=== PATIENT | male | born 1955 | race Caucasian/White ===

== ENCOUNTER → 2023-12-15 13:34 | Outpatient (REF) | payer OTHER, SELFPAY | LOC: RCS 13:34 | PROVIDERS: ATTENDING PHYSICIAN Internal Medicine Cardiovascular Disease; FAMILY PHYSICIAN Internal Medicine | DX: I35.0 Nonrheumatic aortic (valve) stenosis (principal); I10 Essential (primary) hypertension | CPT/HCPCS: 93306 ==

== ENCOUNTER → 2024-06-14 08:47 | Outpatient (REF) | payer OTHER, SELFPAY | LOC: RCS 08:47 | PROVIDERS: ATTENDING PHYSICIAN Internal Medicine Cardiovascular Disease; FAMILY PHYSICIAN Internal Medicine | DX: I35.0 Nonrheumatic aortic (valve) stenosis (principal) | CPT/HCPCS: 93306 ==

== ENCOUNTER 2024-07-01 07:32 | Day surgery (SDC) | payer OTHER, SELFPAY ==
[2024-07-01] VITALS (10 sets, daily range): BP systolic 105–149; BP diastolic 76–105; BMI 32.1
[2024-07-01 08:23] LABS: Glucose - Point of Care 195 mg/dl (70-99)
[2024-07-01] MEDS: LOW STRENGTH ASPIRIN 324 MG PO (08:36)
[2024-07-01] MEDS: NSS 287 ML IV (08:36)
--- NOTE | 2024-07-01 10:16 | ITS.CL.CATH ---
[employer] - Catheterization
Cardiac Catheterization
Procedure Report:
LEFT HEART CATHETERIZATION
Date of Procedure: July 01, 2024
Referring: Dr. Jos Ortiz
PROCEDURES:
1. Left heart catheterization with coronary and single-plane left ventriculography
INDICATION: Severe symptomatic aortic stenosis
ACCESS: Right radial artery, 6 Chinese sheath
HEMODYNAMICS : (mmHg)
AO (s/d) : 124/79
LV (s/d) : 194/13
LVEDP : 21
AORTIC VALVE:
Mean Gradient: 52 mmHg
CORONARY FINDINGS
DOMINANCE: Right
LEFT MAIN: Normal
LEFT ANTERIOR DESCENDING: The LAD arises normally from the left main and runs in the anterior interventricular groove with diffuse noncritical luminal irregularities
CIRCUMFLEX: The circumflex is a medium caliber nondominant vessel. The first sizable obtuse marginal branch is 100% occluded at its origin and noted to fill via left to left collaterals. The circumflex continues in the AV groove supplying 3
terminal posterolateral branches
RIGHT CORONARY ARTERY: The right coronary artery is a small caliber dominant vessel with a 40% mid stenosis between 2 RV marginal branches and 60% distal RCA stenosis.
VENTRICULOGRAPHY: Left ventriculography was performed in an LION projection. Digital single-plane left ventricular ejection fraction is visually estimated at 65%
RADIATION SUMMARY: Fluoro Time (min): 2.9, Dose (mGy): 301, DAP (Gy.cm2) : 22.7
Closure Device: TR band
CONCLUSIONS
1. Moderate coronary disease with 100% occlusion of OM1 which fills via rwzw-gr-lqiq collaterals and 60% distal RCA stenosis with faint rxmo-pz-hcgbx collaterals filling the distal vessel.
2. Severe aortic stenosis with mean aortic valve gradient of 52 mmHg
3. Preserved left ventricular systolic function
RECOMMENDATIONS
1. OM1 is 100% occluded and the distal vessel fills via collaterals. There is moderate nonfocal coronary disease involving the mid LAD and 60% distal RCA. (NOTE: STEMI presented to ED during this procedure and iFR could not be performed given
time constraints)
2. Will proceed with TAVR CT scan
3. Will discuss at upcoming valve clinic meeting
Copy to: Dr. Jos Ortiz
--- NOTE | 2024-07-01 12:35 | CONSULT.STRU ---
Consultation
-
Date/Time Consultation Requested: 07/01/2024
Date/Time Consultation Performed: 07/01/2024
Requesting Provider: Jos Mathur MD
Performing Provider: PATRICK Constantino
Reason for Consultation: Aortic stenosis/ TAV evaluation
Patient History
Physicians
Family Physician: Christopher Galan
Outpatient Salesperson [employer]: Lynn Ortiz
Primary Salesperson [employer]: Shelly Ortiz
History of Present Illness
Mr. Mckeon is a very pleasant and well appearing 69yo male who just underwent cardiac catheterization today. He has known history of aortic stenosis but over the last several months he is noticing increased FINE. His echocardiogram on 06/14/2024 was
notable for EF 60-65%, AV PG/M/55, JORGE: 0.7, no AI documented, trace MR, trace TR. 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 He denies CP, palpitations, orthopnea, PND or peripheral
edema.
Reviewed the pathophysiology of aortic stenosis with the patient and his . Explained the treatment options of SAVR and TAVR. Explained the TAVR evaluation process including follow up BMP, CT TAVR scan, CT surgery consult and Heart Team
discussion. Provided with script for BMP next week, script and appointment for CT TAVR, Consult appointment with Dr. Swan and a copy of the TAVR education booklet with contact information. Allowed for and answered questions.
Past Medical History
Past Medical History: HTN, Hypercholesterolemia, NIDDM and Other (kidney stones)
Past Surgical History
Past Surgical History: Other (hernia repair at 1yo)
Dental History
[facility]- has been over a year since last visit, will call and make an appointment,
Family History
Mother: Still Living (92yo)
Father: at Age (83yo (Cancer, CVA))
Social History
Alcohol: Occasional
Drug: None
Tobacco: Non-Smoker
Personal:
Living: With Spouse
Allergies
Allergy/AdvReac Type Severity Reaction Status Date / Time
No Known Allergies Allergy Verified 07/01/24 08:23
Home Medications
�Medication �Instructions �Recorded �Confirmed �Type
aspirin 81 mg tablet,delayed 81 mg PO DAILY #1 tab 07/01/24 Rx
release
atorvastatin 20 mg tablet 20 mg PO DAILY 07/01/24 07/01/24 History
bisoprolol 5 1 tab PO DAILY 07/01/24 07/01/24 History
mg-hydrochlorothiazide 6.25 mg
tablet
canagliflozin 300 mg tablet 300 mg PO DAILY 07/01/24 07/01/24 History
(Invokana)
enalapril maleate 20 mg tablet 20 mg PO HS 07/01/24 07/01/24 History
glimepiride 4 mg tablet 8 mg PO DAILY 07/01/24 07/01/24 History
metformin 1,000 mg tablet 1,000 mg PO BID 07/01/24 07/01/24 History
multivitamin with minerals-folic 1 tab PO DAILY 07/01/24 07/01/24 History
acid 80 mcg chewable tablet
(Centrum Adult 50 Plus)
omeprazole 40 mg capsule,delayed 40 mg PO DAILY 07/01/24 07/01/24 History
release
repaglinide 2 mg tablet 4 mg PO TIDWMEAL 07/01/24 07/01/24 History
STS%
STS %: AVR: 0.715%, AVR+ CAB.07%
Review of Systems
-
History Source: Patient
General: Reports No Symptoms; Denies Fever, Weight Gain, Weight Loss or Fatigue
HEENT: Reports No Symptoms; Denies Visual Changes
Respiratory: Reports FINE; Denies Cough, Asthma or PND
Cardiac: Reports No Symptoms; Denies Chest Pain, Palpitations or Edema
Abdomen/GI: Reports No Symptoms; Denies Abdominal Pain, Reflux, Indigestion, Nausea or Vomiting
: Reports No Symptoms; Denies Dysuria, Urgency or Hematuria
Musculoskeletal: Reports No Symptoms
Skin: Reports No Symptoms
Neurological: Reports No Symptoms; Denies CVA, TIA, Headaches, Syncope or Dizzy
Vascular: Reports No Symptoms
Physical Exam
Vital Signs
Temp 98.0 F 07/01/24 08:42
Temp route: Temporal 07/01/24 08:42
Pulse 76 07/01/24 12:15
Resp Rate 16 07/01/24 11:15
Blood pressure 105/78 07/01/24 12:01
Blood pressure extremity used: Left upper arm 07/01/24 08:42
Position: Sitting 07/01/24 08:42
MAP (cuff-Eleanor Monitor) 87 07/01/24 12:01
SaO2 97 07/01/24 12:15
Oxygen Mode of Delivery Room air 07/01/24 12:00
Can the patient verbally communicate their pain? Yes 07/01/24 12:00
Actual Weight 95.7 kg 07/01/24 08:00
Body Mass Index (BMI) 32.1 07/01/24 08:00
Labs
06/28/2024 ([facility])
BUN/Creat: 19/1.03 GFR: 78
H/H: 17.1/51.8
WBC: 8.2
Platelets: [id number]
Diagnostic Studies
07/01/2024 Cardiac Catheterization:
HEMODYNAMICS : (mmHg)
AO (s/d) : 124/79
LV (s/d) : 194/13
LVEDP : 21
AORTIC VALVE:
Mean Gradient: 52 mmHg
CORONARY FINDINGS
DOMINANCE: Right
LEFT MAIN: Normal
LEFT ANTERIOR DESCENDING: The LAD arises normally from the left main and runs in the anterior interventricular groove with diffuse noncritical luminal irregularities
CIRCUMFLEX: The circumflex is a medium caliber nondominant vessel. The first sizable obtuse marginal branch is 100% occluded at its origin and noted to fill via left to left collaterals. The circumflex continues in the AV groove supplying 3
terminal posterolateral branches
RIGHT CORONARY ARTERY: The right coronary artery is a small caliber dominant vessel with a 40% mid stenosis between 2 RV marginal branches and 60% distal RCA stenosis.
VENTRICULOGRAPHY: Left ventriculography was performed in an LION projection. Digital single-plane left ventricular ejection fraction is visually estimated at 65%
RADIATION SUMMARY: Fluoro Time (min): 2.9, Dose (mGy): 301, DAP (Gy.cm2) : 22.7
Closure Device: TR band
CONCLUSIONS
1. Moderate coronary disease with 100% occlusion of OM1 which fills via zefv-di-ooew collaterals and 60% distal RCA stenosis with faint qela-il-kmwgi collaterals filling the distal vessel.
2. Severe aortic stenosis with mean aortic valve gradient of 52 mmHg
3. Preserved left ventricular systolic function
RECOMMENDATIONS
1. OM1 is 100% occluded and the distal vessel fills via collaterals. There is moderate nonfocal coronary disease involving the mid LAD and 60% distal RCA. (NOTE: STEMI presented to ED during this procedure and iFR could not be performed given
time constraints)
2. Will proceed with TAVR CT scan
3. Will discuss at upcoming valve clinic meeting
06/14/2024 Echocardiogram:
CONCLUSIONS
Normal left ventricular size and systolic function.
No regional wall motion abnormalities are seen.
LV ejection fraction is 60-65% by volumetric assessment.
Normal right ventricular size and function.
Thickened and calcified aortic valve with restricted leaflet motion.
Severe aortic stenosis with peak/mean gradients across the aortic valve of
91/55 mmHg, respectively.
LVOT diameter of 2.1 cm.
Tricuspid valve opens normally with trace tricuspid regurgitation.
Estimated pulmonary artery pressure of 24 mmHg assuming a right atrial pressure
of 3 mmHg.
Pulmonic valve is grossly normal but poorly visualized.
Normal size aortic root, and normal size aorta.
The IVC is of normal size and demonstrates normal respiratory variation.
Indications:
Moderate to severe aortic stenosis
Rhythm: Sinus
Portable Study: No
Technical Quality: Fair
Contrast: None
BP: 136 / 78
PROCEDURE
A complete Transthoracic Echocardiogram was performed utilizing two-dimensional
evaluation with color flow and spectral Doppler analysis.
FINDINGS
Left Ventricle
Normal left ventricular size and systolic function. Mild concentric left
ventricular hypertrophy. No regional wall motion abnormalities are seen. LV
ejection fraction is 60-65% by volumetric assessment. Diastolic function
indeterminate.
Right Ventricle
Normal right ventricular size and function.
Left Atrium
Indexed LA volume is within normal range (15-34 mL/m2).
Right Atrium
Normal right atrial size.
Mitral Valve
Mitral valve opens normally. Mitral annular calcification with trace mitral
regurgitation.
Aortic Valve
Thickened and calcified aortic valve with restricted leaflet motion. Severe
aortic stenosis with peak/mean gradients across the aortic valve of 91/55 mmHg,
respectively. The aortic valve by the Continuity equation is calculated at 0.7
Tricuspid Valve
Tricuspid valve opens normally with trace tricuspid regurgitation. Estimated
pulmonary artery pressure of 24 mmHg assuming a right atrial pressure of 3
mmHg.
Pulmonic Valve
Pulmonic valve is grossly normal but poorly visualized. No pulmonic
regurgitation is seen.
Pericardium\\Pleura
No pericardial or pleural effusions seen.
Aorta
Normal size aortic root, and normal size aorta. The aortic arch is normal in
caliber.
Other Finding
The IVC is of normal size and demonstrates normal respiratory variation.
Interatrial septum is intact with no evidence of shunting by color flow
Doppler.
Exam
General: Well Developed, Well Nourished, No Apparent Distress and Comfortable
HEENT: Normocephalic, PERRLA and EOMI
Neck: Trachea Midline
Respiratory: Clear; Negative Wheezes, Crackles or Rhonchi
Cardiac: S1/S2, Regular Rhythm and Murmur (Grade II/)
GI: Soft, Non Tender, Non Distended and Normal Bowel Sounds
Rectal: Deferred by Provider
Skin: Warm and Dry
Neuro: AO x 3, No Motor Deficits and Nonfocal/Grossly Intact
Extremities: Pulses (+2 pedal pulses bilaterally); Negative Lower Level Edema
Psych: Calm
Assessment / Plan
-
Severe Aortic stenosis:
����������� Continue evaluation for aortic stenosis as outpatient
����������� BMP next week
����������� CT TAVR scan 07/17/2024 at
����������� CT surgery consult with Dr. Swan 07/22/2024
����������� Dental Clearance
����������� Heart team discussion at [facility]
Procedure Type:�CABG + AVR
Perioperative Outcome Estimate %
Operative Mortality 1.07%
Morbidity & Mortality 7.57%
Stroke 1.7%
Renal Failure 1.3%
Reoperation 3.3%
Prolonged Ventilation 4.64%
Deep Sternal Wound Infection 0.181%
Long Hospital Stay (>14 days) 3.32%
Short Hospital Stay (<6 days)* 50.4%
Procedure Type:�Isolated AVR
Perioperative Outcome Estimate %
Operative Mortality 0.715%
Morbidity & Mortality 5.53%
Stroke 0.77%
Renal Failure 0.712%
Reoperation 2.94%
Prolonged Ventilation 2.75%
Deep Sternal Wound Infection 0.066%
Long Hospital Stay (>14 days) 1.52%
Short Hospital Stay (<6 days)* 67.1%
Data Reviewed
-
EKG: Report Reviewed by me
Utility Hand: Discussed with Physician
Echo: Report Reviewed by me and Discussed with Patient
Labs: Labs Reviewed by me
Old Records: Reviewed (Cardiology notes)
Total Time Spent with Patient (in minutes): 30
[2024-07-01] MEDS: NSS 432 IV (13:13)
== END 2024-07-01 13:15 | disposition home or self-care (01) ==
LOC: CATH 07:32
PROVIDERS: ATTENDING PHYSICIAN Internal Medicine Interventional Cardiology; FAMILY PHYSICIAN Internal Medicine; OTHER PHYSICIAN Internal Medicine Cardiovascular Disease
DX: I35.0 Nonrheumatic aortic (valve) stenosis (principal); I25.10 Atherosclerotic heart disease of native coronary artery without angina pectoris; I10 Essential (primary) hypertension; E78.00 Pure hypercholesterolemia, unspecified; E11.9 Type 2 diabetes mellitus without complications; Z82.3 Family history of stroke; Z79.82 Long term (current) use of aspirin; Z79.84 Long term (current) use of oral hypoglycemic drugs
CPT/HCPCS: 82962; 93458; C1894; Q9967

== ENCOUNTER → 2024-07-17 09:14 | Outpatient (REF) | payer OTHER, SELFPAY | LOC: RAD 09:14 | PROVIDERS: ATTENDING PHYSICIAN Nurse Practitioner Adult Health; FAMILY PHYSICIAN Internal Medicine | DX: I35.0 Nonrheumatic aortic (valve) stenosis (principal) | CPT/HCPCS: 74174; 75572; Q9967 ==

== ENCOUNTER 2024-08-22 05:07 | Inpatient (IN) | payer OTHER, MEDICARE, SELFPAY ==
[2024-08-13 08:26] VITALS: BMI 31.1
[2024-08-13 09:10] LABS: % Basophils 1.3 % (0-2); % Eosinophils 7.6 % (0-6); % Immature Granulocytes 0.2 % (0-0.5); % Lymphocytes 22.8 % (20.5-51.1); % Monocytes 6.2 % (1.7-9.3); % Neutrophils 61.9 % (42.2-75.2); Absolute Basophils 0.1 10^3/uL (0-0.2); Absolute Eosinophils 0.6 10^3/uL (0-0.7); Absolute Lymphocytes 1.9 10^3/uL (1.2-3.4); Absolute Monocytes 0.5 10^3/uL (0.1-0.6); Absolute Neutrophils 5.1 10^3/uL (1.4-6.5); Hematocrit 46.3 % (39.0-52.0); Hemoglobin 16.2 g/dL (13.0-18.0); Mean Corpuscular Hgb 31.2 pg (27.0-31.0); Mean Platelet Volume 9.9 fL (7.4-10.4); Nucleated Red Blood Cells % 0 % (-); Platelet Count 268 10^3/uL (130-400); Red Cell Dist. Width 13.7 % (11.5-14.5); White Blood Cell Count 8.2 10^3/uL (4.8-10.8)
[2024-08-13 09:25] LABS: INR 0.81; PT 11.6 Sec (11.4-14.6)
[2024-08-13 09:26] LABS: APTT 30.2 Sec (23.4-35.0)
[2024-08-13 09:30] LABS: Urine Albumin Negative (Neg - Trace); Urine Bilirubin Negative (Negative); Urine Character Clear (Clear); Urine Color Yellow; Urine Glucose 4+ (Negative); Urine Ketone 2+ (Negative); Urine Leukocyte Negative (Negative); Urine Nitrite Negative (Negative); Urine Occult Blood Negative (Negative); Urine Specific Gravity 1.015 (<1.030); Urine Urobilinogen Negative (Neg - 1+)
[2024-08-13 09:54] LABS: Blood Urea Nitrogen 24 mg/dl (9-20); Calcium 9.8 mg/dl (8.4-10.2); Carbon Dioxide 26 mmol/L (22-30); Chloride 103 mmol/L (98-107); Estimated Creatinine Clearance 84 ml/min; Glucose 149 mg/dl (70-99); Potassium 4.7 mmol/L (3.5-5.1); Sodium 140 mmol/L (135-145); eGFR > 60.00
--- NOTE | 2024-08-13 10:07 | CM ---
Met with and Mrs. Mckeon in [facility]. He states prior to admission he resides with his spouse in a spilt level home without any steps to enter. He states his trmbke-tv-xos resides in a in-law suite attached to their home. She is totally
independent with her care. He states prior to admission he was independent with ambulation and adls. He states he does not have any DME in the home. He states he has a prescription plan. His spouse states she will be home to assist in his care if
needed. She states she can delinquency prevention social worker. The discharge plan is to return home with his spouse and a home visit by the Transitional Care Nurse when medically stable.
We reviewed pre-op and post-op routines. We reviewed the shower instructions. He has the soap, written instructions and the Cardiothoracic Surgery Educational Booklet. We also reviewed restrictions including sternal precautions and driving
restrictions. We discussed a home visit by the Transitional Care Nurse. He is agreeable to a home visit. The plan is for AVR/possible CABG on August.
[2024-08-13 11:12] LABS: Glycohemoglobin (HgbA1c) 7.1 % (4.0-5.6)
[2024-08-22] VITALS (20 sets, daily range): BP systolic 85–170; BP diastolic 62–110; BMI 31.3
[2024-08-22] MEDS: PROTONIX 40 MG PO (05:27)
[2024-08-22] MEDS: MAGNESIUM OXIDE 500 MG PO (05:27)
[2024-08-22] MEDS: LOPRESSOR 25 MG PO (05:27)
[2024-08-22] MEDS: BACTROBAN 2% OINTMENT 1 APPLIC NASAL ×2 (05:40→20:09)
--- NOTE | 2024-08-22 05:49 | PTCARENOTE ---
Patient admitted to 2259. Vital signs obtained, clipped, medications administered. home medications reconciled. admission questions completed. pt confirmed NPO since midnight and 2 CHG showers. Awaiting transfer to [facility]
--- NOTE | 2024-08-22 06:16 | W.CVOR.SURPR ---
CVOR Surgeon Immed Pre Op
-
I have examined this patient prior to performance of the scheduled procedure.
The patient's condition is unchanged from the time of the dictated/written History and
Physical and the patient is able to undergo the scheduled procedure.
Sternotomy AVR likely root enlargement, CABG x 1 (to TRIMMING CUTTER MACHINE OM), and TYRESE CLip
[2024-08-22 07:32] LABS: ACT+ - POC 101 Seconds (82-134)
[2024-08-22 07:58] LABS: Urine Albumin 1+ (Neg - Trace); Urine Bilirubin Negative (Negative); Urine Character Clear (Clear); Urine Color Yellow; Urine Glucose 4+ (Negative); Urine Ketone 1+ (Negative); Urine Leukocyte Negative (Negative); Urine Nitrite Negative (Negative); Urine Occult Blood 4+ (Negative); Urine Specific Gravity 1.015 (<1.030); Urine Urobilinogen Negative (Neg - 1+); Urine pH 6.5 (5.0-9.0)
[2024-08-22 08:17] LABS: Urine Bacteria Few (Negative); Urine Red Blood Cell 26-30 /HPF (0-2)
[2024-08-22 08:29] LABS: ACT+ - POC 515 Seconds (82-134)
[2024-08-22 08:46] LABS: B.E. - POC -1.1 mmol/L; Glucose - POC 161 mg/dl (70-99); HCO3 - POC 23 mmol/L (21-28); Hematocrit - POC 37 % PCV (42-52); Hemodilution- POC No; Hemoglobin Calculated - POC 12.4; Ionized Calcium - POC 1.09 mmol/L (1.15-1.33); Lactate - POC 1.88 mmol/L (0.36-0.75); O2 Saturation %Calculated-POC 99.9 % (94-98); PCO2 - POC 33 mmHg (35-48); PO2 - POC 339 mmHg (83-108); Sodium - POC 141 mmol/L (136-145); Specimen Type - POC Arterial; pH - POC 7.44 (7.35-7.45)
[2024-08-22 08:54] LABS: B.E. - POC 0.6 mmol/L; Glucose - POC 211 mg/dl (70-99); HCO3 - POC 26 mmol/L (21-28); Hematocrit - POC 35 % PCV (42-52); Hemodilution- POC Yes; Hemoglobin Calculated - POC 11.8; Ionized Calcium - POC 1.02 mmol/L (1.15-1.33); Lactate - POC 1.25 mmol/L (0.36-0.75); PCO2 - POC 45 mmHg (35-48); PO2 - POC 445 mmHg (83-108); Potassium - POC 4.7 mmol/L (3.5-5.1); Sodium - POC 140 mmol/L (136-145); Specimen Type - POC Arterial; pH - POC 7.38 (7.35-7.45)
[2024-08-22 09:03] LABS: ACT+ - POC 516 Seconds (82-134)
[2024-08-22 09:42] LABS: ACT+ - POC 472 Seconds (82-134)
[2024-08-22 09:53] LABS: B.E. - POC 0.7 mmol/L; Glucose - POC 162 mg/dl (70-99); HCO3 - POC 26 mmol/L (21-28); Hematocrit - POC 34 % PCV (42-52); Hemodilution- POC Yes; Hemoglobin Calculated - POC 11.4; Lactate - POC 1.72 mmol/L (0.36-0.75); O2 Saturation %Calculated-POC 99.9 % (94-98); PCO2 - POC 46 mmHg (35-48); PO2 - POC 339 mmHg (83-108); Potassium - POC 3.8 mmol/L (3.5-5.1); Sodium - POC 143 mmol/L (136-145); Specimen Type - POC Arterial; pH - POC 7.37 (7.35-7.45)
[2024-08-22 10:26] LABS: ACT+ - POC 469 Seconds (82-134)
--- NOTE | 2024-08-22 10:58 | CM ---
Chart reviewed. Patient is in the OR today. Patient is independent of ADLS, lives with his in a split level house, 0 LINN, 0 DME. Plan is for the patient to return home with CT Transitional RN. CM to follow
[2024-08-22 11:04] LABS: B.E. - POC 0.7 mmol/L; Glucose - POC 133 mg/dl (70-99); HCO3 - POC 26 mmol/L (21-28); Hematocrit - POC 33 % PCV (42-52); Hemodilution- POC Yes; Hemoglobin Calculated - POC 11.2; Lactate - POC 3.19 mmol/L (0.36-0.75); O2 Saturation %Calculated-POC 99.9 % (94-98); PCO2 - POC 44 mmHg (35-48); PO2 - POC 269 mmHg (83-108); Potassium - POC 4.2 mmol/L (3.5-5.1); Sodium - POC 144 mmol/L (136-145); Specimen Type - POC Arterial; pH - POC 7.38 (7.35-7.45)
[2024-08-22 11:07] LABS: ACT+ - POC 206 Seconds (82-134)
[2024-08-22 11:20] LABS: ACT+ - POC 123 Seconds (82-134)
[2024-08-22 11:28] LABS: B.E. - POC -2.4 mmol/L; Glucose - POC 143 mg/dl (70-99); HCO3 - POC 23 mmol/L (21-28); Hematocrit - POC 32 % PCV (42-52); Hemodilution- POC Yes; Ionized Calcium - POC 1.24 mmol/L (1.15-1.33); Lactate - POC 2.67 mmol/L (0.36-0.75); PCO2 - POC 39 mmHg (35-48); PO2 - POC 382 mmHg (83-108); Potassium - POC 4.1 mmol/L (3.5-5.1); Sodium - POC 143 mmol/L (136-145); Specimen Type - POC Arterial; pH - POC 7.37 (7.35-7.45)
--- NOTE | 2024-08-22 11:46 | CON.INTV ---
Consultation
Consultation Request
Date/Time Consultation Requested: 08/22/2024 - 1113
Date/Time Consultation Performed: 08/22/2024 - 1139
Requesting Provider: PATRICK Talavera
Performing Provider: Dr. Gonzalez
Reason for Consultation: CABG + SAVR
Medical History
-
Chief Complaint: Elective CABG + SAVR
History of Present Illness:
69-year-old male non-smoker with a past medical history of nonrheumatic aortic valve stenosis, CAD, hypercholesterolemia, hypertension, DM type II and history of kidney stone who presents with surgical aortic valve replacement + surgical
revascularization. Patient known to the CT surgery service with last visit on 08/05/[address] Swan. Patient's recent echo from 06/14/2024 showed severe aortic stenosis with peak/mean gradients of 91/55 mmHg, respectively, with restricted leaflet
motion. Estimated PASP was WNL at 24 mmHg. LVEF was 60-65% with no regional WMA, and the RV was normal in size and function. Left heart cath on 07/01/2024 showed moderate CAD with 100% occlusion of the OM1 which fills via afbx-lf-raam collaterals
and 60% distal RCA stenosis with faint kmfm-dq-gfldn collaterals filling the distal vessel. Also severe aortic stenosis with a mean gradient of [address] TAVR done on 07/17/2024 and there was no lung nodules, pleural effusions, no significant
incidental findings. A multidisciplinary team discussion agreed to move forward with surgical aortic valve replacement given his smaller size of his annulus and sinuses. He also had been offered surgical revascularization which he also agreed to.
Today he underwent CABG x 1 (Ao to RSVG to RPDA), aortic root enlargement using bovine pericardial patch, surgical aortic valve replacement with 25 mm bioprosthesis and a left atrial appendage exclusion with a 45 mm clip. There were no immediate
complications and he was transferred to the CVICU postoperatively for further care, and cash grain farmer services consulted for additional management/recommendations.
When I saw the patient, he was in bed, intubated on a CPAP trial on 09/09 with 40% FiO2 with PIP 11 cmH2O, VTe 471 cc and breathing at 22 breaths/min. Heart rate 90, BP 103/62 via A-line, BP via NIBP: 88/66, PAP 31/16, and CO/CI: 4.28/2.07,
respectively. Mediastinal chest tubes x [address] Currently on Levophed at 2 mcg/min and insulin drip at 10 units/hr.
PMHx: CAD, severe arctic stenosis, history of kidney stone, diabetes mellitus type 2, hypercholesterolemia, hypertension, chronic back pain
PSHx: Hernia repair (at 1-years-old), dental surgery
Past Medical History
Past Medical History: Other (Above as per HPI)
Past Surgical History: Other (Above as per HPI)
Social History
Tobacco: Non-smoker
Alcohol: Occasional (Usually liquor or beer once a month)
Drug: None
Personal:
Living: With Family
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
Family History
Family History: Cancer (Father: Bladder cancer), Diabetes (Mother), Hypertension (Mother) and Other (Migraine family history of cerebral artery occlusion)
Allergies / Home Medications
Allergies
Allergy/AdvReac Type Severity Reaction Status Date / Time
No Known Allergies Allergy Verified 08/09/24 12:09
Home Medications
�Medication �Instructions �Recorded �Confirmed �Last Taken �Type
atorvastatin 20 mg tablet 20 mg PO DAILY High Cholesterol 07/01/24 08/22/24 08/21/24 06:00 History
bisoprolol 5 1 tab PO DAILY Blood Pressure 07/01/24 08/22/24 08/21/24 06:00 History
mg-hydrochlorothiazide 6.25 mg
tablet
canagliflozin 300 mg tablet 300 mg PO DAILY Heart 07/01/24 08/22/24 08/19/24 06:00 History
(Invokana) Disease/Condition
enalapril maleate 20 mg tablet 20 mg PO HS Blood Pressure 07/01/24 08/22/24 08/18/24 06:00 History
glimepiride 4 mg tablet 8 mg PO DAILY Diabetes 07/01/24 08/22/24 08/21/24 18:00 History
metformin 1,000 mg tablet 1,000 mg PO BID Diabetes 07/01/24 08/22/24 08/21/24 16:00 History
multivitamin with minerals-folic 1 tab PO DAILY Supplement 07/01/24 08/22/24 08/13/24 06:00 History
acid 80 mcg chewable tablet
(Centrum Adult 50 Plus)
omeprazole 40 mg capsule,delayed 40 mg PO DAILY Gastrointestinal 07/01/24 08/22/24 08/21/24 06:00 History
release Issue
repaglinide 2 mg tablet 4 mg PO TIDWMEAL Diabetes 07/01/24 08/22/24 08/21/24 18:00 History
dulaglutide 0.75 mg/0.5 mL 0.75 mg SC WE Diabetes 08/09/24 08/22/24 08/14/24 06:00 History
subcutaneous pen injector
(Trulicity)
aspirin 81 mg tablet,delayed 81 mg PO DAILY Blood Clot 08/22/24 08/22/24 08/21/24 06:00 History
release Prevention/Tx
Review of Systems
-
Unable to Obtain full review of systems at this time due to: Patient Intubation
Vitals / Labs / Diagnostic Testing
Vital Signs
Temp Pulse Resp BP Pulse Ox
97.7 F 79 0 126/88 98
08/22/24 13:00 08/22/24 13:10 08/22/24 13:05 08/22/24 13:05 08/22/24 13:16
Lab Data
08/22/24 11:54
Laboratory Results
08/22/24
11:54
PT 18.1 H
INR 1.44
APTT 32.3
pH 7.42
pCO2 39
pO2 125 H
HCO3 25.3
O2 Delivery Level
Diagnostic Testing:
Physical Exam
-
HEENT: Normocephalic, Anicteric and Other (ETT in)
Cardiovascular: S1/S2 and Peripheral Edema (negative)
Respiratory: Wheeze (negative), Rales (negative), Rhonchi (negative), Non-Labored Respirations, Other (Mechanical breath sounds heard bilaterally) and Other (Chest tubes: mediastinal chest tubes x 2)
GI: Soft, Non Distended, Non Tender and Normal Bowel Sounds
Neurology: Tremors (negative) and Other (Sedated)
Skin: Warm and Dry
General: Respiratory Distress (negative), Comfortable, Fever (negative) and Chills (negative)
Assessment
-
Assessment: 69-year-old male non-smoker with a past medical history of nonrheumatic aortic valve stenosis, CAD, hypercholesterolemia, hypertension, DM type II and history of kidney stone who presents with surgical aortic valve replacement +
surgical revascularization. Patient known to the CT surgery service with last visit on 08/05/[address] Swan. Patient's recent echo from 06/14/2024 showed severe aortic stenosis with peak/mean gradients of 91/55 mmHg, respectively, with restricted
leaflet motion. Estimated PASP was WNL at 24 mmHg. LVEF was 60-65% with no regional WMA, and the RV was normal in size and function. Left heart cath on 07/01/2024 showed moderate CAD with 100% occlusion of the OM1 which fills via hiyn-tw-heoo
collaterals and 60% distal RCA stenosis with faint lqth-sy-wxjth collaterals filling the distal vessel. Also severe aortic stenosis with a mean gradient of [address] TAVR done on 07/17/2024 and there was no lung nodules, pleural effusions, no
significant incidental findings. A multidisciplinary team discussion agreed to move forward with surgical aortic valve replacement given his smaller size of his annulus and sinuses. He also had been offered surgical revascularization which he also
agreed to. Today he underwent CABG x 1 (Ao to RSVG to RPDA), aortic root enlargement using bovine pericardial patch, surgical aortic valve replacement with 25 mm bioprosthesis and a left atrial appendage exclusion with a 45 mm clip. There were no
immediate complications and he was transferred to the CVICU postoperatively for further care, and cash grain farmer services consulted for additional management/recommendations.
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
Impression:
#Multivessel CAD s/p CABG x 1 (Ao to RSVG to RPDA) + left atrial appendage exclusion with 45 mm clip - POD#0
#Severe aortic valve stenosis s/p surgical aortic valve replacement with 25 mm bioprosthesis - POD#0
#Acute anemia due to above
#DM type II (uncontrolled: HbA1c � 7.1 on 08/13/2024) complicated by hyperglycemia
#Hypertension
#Hyperlipidemia
#History of nephrolithiasis
#Chronic HFpEF
Plan:
Ventilator settings reviewed
FiO2 will be weaned to maintain SpO2 >90-94%
Minute ventilation will be adjusted
Arterial blood gases will be monitored
Spontaneous breathing trial will be attempted with hopeful extubation after anesthesia/sedation wear off
prn nebulized bronchodilators - not currently bronchospastic
Pulmonary artery catheter parameters will be followed
Pressors/antihypertensive/inotropes/diuretics will be provided as needed
Maintain MAP>65
Replete electrolytes with K>4, Mg>2
Monitor chest tube output (mediastinal chest tubes x 2)
Monitor hemoglobin
Monitor platelet count and coags
Transfuse blood products as needed to maintain Hb>7g/dL, plt>50k (given post-operative status)
CT surgery managing chest tubes
Monitor blood sugar to maintain euglycemia with goal BG 110-140
Insulin drip per protocol
Aspiration precautions
VAP prevention protocol
DVT prophylaxis
Early nutrition
Early mobilization
Critical care statement: A total of 41 minutes of critical care time was provided for this patient today. This includes management of ventilator, spontaneous breathing trial, arterial blood gases, pressors, of unstable vital signs, evaluation of the
patient at bedside, reviewing the patient's pertinent medical records including radiographs, microbiology, laboratory evaluations, and discussion with primary team and critical care nursing.
--- NOTE | 2024-08-22 11:49 | W.PN.CT.SURG ---
CT Surgery Operative Note
-
CARDIAC SURGERY OPERATIVE REPORT
Preoperative Diagnosis: Aortic valve stenosis with multivessel coronary artery disease
Postoperative Diagnosis: Same
Procedure(s) Performed:
1. Standard sternotomy with aortic and right atrial cannulation
2. Endoscopic harvesting of right lower extremity for vein
3. Coronary artery bypass grafting x 1 (Ao to RSVG to RPDA)
4. Aortic root enlargement using bovine pericardial patch [Maria De Jesus Jett]
5. Surgical aortic valve replacement [25 mm bioprosthesis]
6. Left atrial appendage exclusion [45 mm clip]
7. Placement temporary ventricular pacing wires
8. Trans-esophageal echocardiography
Date of Surgery: 08/22/2024
Comorbidities:
1. Severe aortic valve stenosis
2. Two-vessel coronary artery disease
3. Hypertension
4. Hyperlipidemia
5. Nephrolithiasis
6. Diabetes
7. Diastolic heart failure
Attending Surgeon: Montana Swan MD, MS
Assistants: Rita Jordan PA-C (present and necessary to quality assistant, retraction, suction, exposure, suture management, and wound closure under my direction) & Annmarie Guardado PA-C (endo vein harvest)
Anesthesiology: Leoncio Garcia MD and Amalia Saavedra CRNA
Scrub and Circulating RNs: Radha Hull RN, Tato Reyna RN
Loss Prevention Coordinator: Shahzad Jacques CCP
Anesthesia: GETA
EBL: per perfusion records
Products: None
CPB Time: 133 minutes
Aortic Cross Clamp Time: 117 minutes
Indication(s) for Procedures: This is a 69-year-old male with severe aortic valve stenosis. Given his numbers being quite severe, he is referred initially for consideration of TAVR versus SAVR. TAVR CT scan demonstrated smaller sinuses in the
annular dimension of approximately 23 TAVR valve size with an annular area of around 420mm2. With this in mind, and his young age and relatively long living relatives, lifetime management was at play. I offered him surgical aortic root
enlargement, surgical aortic valve replacement, and single-vessel bypass with the management of his left atrial appendage.
Aortic Valve Description: Heavily calcified aortic valve with infiltration into the annulus particular towards the noncoronary cusp. Trileaflet valve. Left and right coronary ostia the normal anatomic positions.
Conduit(s) Quality:
RSVG -excellent/good quality conduit with minimal varicosities or thickening
Target(s) Quality:
RPDA -good/although a smaller size target, and had excellent flow with test dosing of antegrade
OM -the QUILTING SUPERVISOR target was too small to graft
Findings: LVEF on intraoperative LINDA was 60% and 65% post procedure with no significant regional wall motion abnormalities. He did have a moderate degree of left ventricular hypertrophy and his ventricle was kissing towards the end the case
requiring more volume loading. His root was enlarged using a large bovine pericardial patch fashioned into a teardrop shape. I cut through the nonleft commissure and down onto the anterior leaflet of the mitral valve after freeing up the dome the
left atrium off of the root. The patch was sewn into place using 4-0 Prolene with 1 or 2 reinforcement sutures. A total of sixteen 2-0 Ethibond sutures were placed circumferentially through the annulus and the neoannulus. At the portion of the
patch, a total of 5 pledgeted sutures were used. I then parachuted down a [address] and secured it with core knots. Of note the original sizing to a surgical valve was approximately 21 mm valve. There was no prosthetic PVL or AI.
Mean gradient across the prosthesis was 9 mmHg while hyperdynamic. Test dose cardioplegia was given down the RPDA graft and confirmed patency and hemostasis. His left atrial appendage was verified to be free of any thrombus or debris preoperatively
and found to be totally occlusive postoperatively
Specimen(s): Aortic valve leaflets.
Prosthesis:
1. 25 mm Frazier Inspiriss Resilia aortic valve, serial number: [id number]
2. 45 mm clip, serial #[id number]
3. Bovine pericardial patch, serial number X [id number]
4. PrevaLeak absorbable sealant along the aortic suture lines
Description of Procedure: The patient was taken to the operating room. Their identity and procedure to be performed were verified and they were positioned supine on the operating table. Induction via general anesthesia with endotracheal intubation
was performed and central venous access and arterial monitoring were inserted. A preoperative transesophageal echocardiogram was performed. The patient was then prepped and draped from chin to feet in a sterile fashion. A preoperative time-out was
performed with all members of the team present. A midline chest incision was performed along with median sternotomy. Simultaneous endoscopic access of the right lower extremity for saphenous vein harvest was obtained along with administration of an
initial 5,000 units of IV heparin. The innominate vein was isolated. Full heparinization was given (a total of 60,000 units). I created a pericardial well. The aortic cannulation site was chosen where it was soft, pliable, and free of calcium.
Cannulation was performed with an arterial cannula in the ascending aorta and a triple-stage venous cannula through the right atrial appendage. The arterial cannula line had an appropriate bounce and correlating pressures with test dosing. Next, a
root vent/antegrade cannula was inserted into the ascending aorta. The ACT was confirmed to be over 400 and retrograde autologous priming was performed before commencing cardiopulmonary bypass. An LV vent was placed at the right superior pulmonary
vein. The pulmonary artery was away from the aorta to facilitate a clamp site. The aortic cross-clamp was placed after decreasing the flow on the bypass and mean arterial pressure. A total of 1.2L initial dose of antegrade Del-Nido
cardioplegia solution was given and planned for re-dosing every 75 minutes as necessary. There was rapid electro-mechanical arrest of the heart at 250 cc of cardioplegia. The left ventricle was observed for distention on echocardiogram and manual
palpation. Cold slush was placed into a sponge and topically on the RV while we systemically cooled to 34 degrees centigrade.
I positioned the heart to expose the distal right coronary at the posterior descending artery. A telida blade was used to expose the coronary and perform the arteriotomy. Coronary Sanchez scissors were used to enlarge the incision. The saphenous vein
was trimmed and beveled to an appropriate size. The distal anastomosis was performed using 7-0 prolene in an end-to-side fashion. Antegrade cardioplegia was administered into the graft. Appropriate hemostasis and flow were confirmed. The graft was
measured for length to the aorta and cut. At this point I rotated the heart medially and exposed what I thought was the OM vessel. I followed this down intramyocardial and found it to be very very small and not worth bypassing. I therefore
reapproximated the muscle here using the remaining vein tissue and term attention back towards the root.
Carbon dioxide was used to flood the field. I turned my attention to the aortic valve and manually identified the location of the right coronary take off. An aortotomy was made approximately 1.5cm above the sinotubular junction. The location of both
left and right coronary vessels were visualized in the root. The aortic valve was inspected and found to be heavily calcified. The leaflets were excised and sent for pathological assessment. The annulus was debrided of any calcium. The root and left
ventricular outflow tract were thoroughly irrigated to remove any debris. The aortotomy towards my side was then brought down towards the 9 left coronary commissure and then carried down towards the mitral valve annulus after freeing the dome of
the left atrium off the root posteriorly. A large bovine pericardiual patch was fashioned into a teardrop fashion and secured in place using 4-0 Prolene. Each of the Prolene suture was then brought up on each side of the aortotomy and then secured
with an additional 4-0 Prolene. A total of 11 non pledgeted 5 pledgetted 2-0 ethibond annular sutures were placed [id number] circumferentially. The pledgeted sutures were used on the exterior surface of the patch going from outside to in.
These were brought through the sewing cuff of the prosthetic valve which as then parachuted into place. The left and right coronary ostia were visualized and were unobstructed by the valve. A Cor-Knot device was used to secure the annular sutures.
The valve was inspected and was well seated. The aortotomy was approximated with 4-0 prolene. I created 1 aortotomy using a #11 blade then a 4.0mm aortic punch above the aortic suture line. The proximal anastomoses were created in an end-to-side
fashion using 6-0 prolene. At the same time, we started to re-warm to 36.5 degrees centigrade. A temporary bipolar ventricular pacing wires were placed on the base of the right ventricle. The patient was placed in a Trendelenburg position and flows
on bypass were lowered. The aortic cross clamp was removed and flows were slowly brought back up. The aortotomy appeared hemostatic. A 30-gauge needle was used to de-air the vein grafts. All bypass grafts were inspected and were free from kinking or
twisting. The distal and proximal anastomoses appeared hemostatic. De-airing maneuvers were performed. Transesophageal echocardiography revealed no paravalvular leak and appropriate prosthetic function. Once de-airing was satisfactory, the left
ventricular and root vents were removed. After verifying acceptable parameters, we initiated weaning from cardiopulmonary bypass. Once we were off cardiopulmonary bypass, the venous cannulas was clamped and removed. A test dose of protamine was
administered and the patient was monitored for any adverse reaction before resuming protamine. Once half of the protamine dose was delivered, pump suckers were turned off and the systolic blood pressure was lowered for aortic decannulation. The
aortic cannula was removed and pursestrings were tied down. All cannulation sites were oversewn with a 4-0 prolene. Additional hemostatic agent was applied over the OM dissection site and around the aortic root. The aortic line, proximal, and distal
coronary anastomoses were hemostatic. The mammary bed was inspected and hemostasis was confirmed. Once the mediastinum was hemostatic, two 24Fr Martin drains were placed within the pericardium. The sternum was approximated with 4#7 single and 3 #8
double stainless steel wires. Fascia was approximated with #1 vicryl suture. The subcutaneous, dermis and epidermis were closed in layers in a running fashion. The skin wound was cleansed and dressed.
All instrument, sponge, and needle counts were confirmed to be correct x 2 at the end of the operation. The patient was transferred to the cardiac intensive care unit in critical but stable condition.
I, Dr. Montana Swan, was present, scrubbed for, and performed all critical elements of this procedure.
Montana Swan MD, MS
Cardiothoracic Surgeon
[facility]
This operative dictation was created using the [employer] dictation system. Please excuse any grammatical, typographical, or 'sound alike' errors
[2024-08-22 12:06] LABS: Hematocrit 32.4 % (39.0-52.0); Hemoglobin 11.5 g/dL (13.0-18.0); Platelet Count 169 10^3/uL (130-400)
[2024-08-22 12:07] LABS: B.E. 0.8 mmol/L; HCO3 25.3 mmol/L (21-28); Ionized Calcium 1.18 mMOL/L (1.15-1.33); O2 Saturation % 99.4 % (94-98); PCO2 39 mmHg (35-48); PO2 125 mmHg (83-108); Potassium 4.1 mMOL/L (3.5-5.1); Sodium 137 mMOL/L (136-145); pH 7.42 (7.35-7.45)
[2024-08-22 12:07] LABS: Glucose - Point of Care 207 mg/dl (70-99)
[2024-08-22 12:10] LABS: Mixed Venous O2 Saturation 69.7 %
[2024-08-22 12:16] LABS: INR 1.44; PT 18.1 Sec (11.4-14.6)
[2024-08-22 12:17] LABS: APTT 32.3 Sec (23.4-35.0)
--- NOTE | 2024-08-22 12:28 | W.PN.UPDATE ---
Update Note
Progress Note Update
Crystalloid: 3200
U.O.: 550
UF: 1400
Blood: None
Wires: V
Inotropes: None
Pressors: levophed
Sedatives: precedex
NEURO: sedated on precedex, pupils +2mm B/L
RESP: #8OT @23cm> 14/500/40/5 Lungs clear B/L. 2 mediastinal (5cc on arrival) chest tubes to -20cm suction. Sanguineous drainage
CV: RRR +S1, S2, no S3, no rub, no murmur. Dermabond to median sternotomy. RIJ w/[place] locked @ 51cm.
ABD: round, soft, no BS
EXT: no edema, +2/4 DP pulses B/L, no femoral bruit, RLE ONEIDA wrap intact; left radial A-line intact
: Brice with clear yellow urine
A/P: POD #0 s/p CABGx1, Ao root enlargement and AVR #25, LAAC
LINDA: Overall LVEF is approximately 70% with no new RWMA
- wean and extubate
- Monitor CT and urine output
- Follow up labs and CXR
- Wean levophed for maps >65/SBP goal 90-110
- Will start ASA tonight
- EKG pending and will send to cards
- Cards consulted
# acute surgical blood loss anemia-expected
- trend CBC
# T2DM (A1C 7.1)
- insulin infusion x 48h
- resume oral agents when tolerating PO
# Hyperlipidemia
- resume statin when tolerating PO
[2024-08-22] MEDS: VERSED 0.5 MG IV ×2 (12:30→12:41)
[2024-08-22 12:36] LABS: Blood Urea Nitrogen 21 mg/dl (9-20); Estimated Creatinine Clearance 109 ml/min; Glucose 196 mg/dl (70-99); Magnesium 2.4 mg/dl (1.6-2.3)
[2024-08-22] MEDS: NSS 500 IV (12:39)
[2024-08-22] MEDS: ANCEF 10 IV ×2 (12:40)
--- NOTE | 2024-08-22 12:40 | PN.DE.MGMTRT ---
Insulin Management
- -
08/22/2024 Diabetes Management Consult
Patient admitted 08/22 for CABG x1 with aortic valve replacement. PMH HCL, HTN, diabetes, severe aortic stenosis. Prior to admission was taking Trulicity .75 weekly on Monday, Glimepiride 8 mg daily, Repaglinide 4 mg TID, metformin 1000 mg BID,
invokana 300 mg daily. A1C 7.1%, cr .9, eGFR > 60.
Patient is in the OR today, all information obtained from chart review.
When patient out of OR to receive critical care glycemic protocol insulin infusion per protocol. Will follow for readiness to transition to home regimen. Will discuss with patient taking both glimepiride and repaglinide.
Will follow
Diabetes History
- -
Type of Diabetes: 2
Pre-Admission Diabetes Regimen
08/22/24
11:54
Creatinine 0.7
Lab Results
Hemoglobin A1c 7.1 % (4.0-5.6) H 08/13/24 08:38
Insulin Pump Settings
IP Diabetes Regimen
08/22/24 08/22/24
11:54 11:59
Glucose 196 H
POC Glucose 207 H
Patient Education
--- NOTE | 2024-08-22 12:44 | PTCARENOTE ---
received pt from the CVOR into 2258, sinus rhythm on tele, HR 70-80, left radial maeve leveled and zeroed, BP labile 90-120/60's, epicardial pacing wire set to 40/10, + peripheral pulses, Right IJ cordis w swan floated to 48, CO 3.74 CI 1.81, PAP
30/17, CVP 14. Lungs diminished, #8 ETT, 23cm right lip, VENT SETTINGS: 40%/500/16/+5 PEEP, POX 98%. CT x2 w red drainage. Brice draining yellow. Routine post op labs, EKG, and CXR completed.
DRIPS: Levophed 2-4mcg/min
Precedex 0.5mcg/kg/hr
Insulin titrated per glycemic
[2024-08-22 13:12] LABS: Glucose - Point of Care 232 mg/dl (70-99)
[2024-08-22] MEDS: NEURONTIN PO ×2 (13:22→15:09)
[2024-08-22] MEDS: LIPITOR PO (13:22)
[2024-08-22] MEDS: NOVOLOG FLEXPEN SC ×3 (13:22→15:08)
[2024-08-22] MEDS: PACERONE PO (13:23)
[2024-08-22] MEDS: TYLENOL PO (13:23)
[2024-08-22] MEDS: CALCIUM GLUCONATE 100 IV (13:39)
[2024-08-22 13:59] LABS: Glucose - Point of Care 181 mg/dl (70-99)
--- NOTE | 2024-08-22 14:06 | PTCARENOTE ---
pt awake, following commands appropriately. Placed on CPAP wean by RT.
[2024-08-22 14:33] LABS: HCO3 21.1 mmol/L (21-28); Ionized Calcium 1.29 mMOL/L (1.15-1.33); O2 Saturation % 99.7 % (94-98); PCO2 34 mmHg (35-48); PO2 162 mmHg (83-108); Potassium 3.8 mMOL/L (3.5-5.1); Sodium 138 mMOL/L (136-145)
[2024-08-22] MEDS: KCL 50 IV ×2 (14:42→15:56)
--- NOTE | 2024-08-22 14:43 | PTCARENOTE ---
pt extubated to 6L NC, pox 99%.
--- NOTE | 2024-08-22 14:45 | W.PN.CARDCBS ---
Addendum entered and electronically signed by Anselmo Dye MD 08/22/24 15:16:
I saw and examined the patient.
The Nurse Practitioner's note was reviewed and I agree with the note.
Comment: Briefly, 69-year-old man past medical history of severe aortic stenosis who underwent AVR with root enlargement, CABG x 1 (RPDA) and left atrial appendage clip earlier today
Seen postoperatively in the CVICU where he remained intubated and sedated
Requiring only low-level pressor support with levo
Filling pressures were at goal based on invasive hemodynamics
Maintaining sinus rhythm on telemetry
Agree with current cardiac meds: Aspirin/Plavix/statin/beta-samina
Rest per Annette Alexander
Original Note:
Today's Communication / Plan
-
continue post op care
Impression / Plan
-
Primary Picture Painter: Dr. MALINI Ortiz
Assessment:
Severe
CAD
s/p CABG x1 (Ao to RSVG to RPDA), bioprosthetic AVR, aortic root enlargement, TYRESE clip 08/22/24
HTN
HLD
DM2
History of nephrolithiasis
ECHO 06/14/2024: EF 60 to 65%, no regional wall motion abnormalities noted, severe with peak/mean gradients 91/55 mmHg, trace TR, PAP 24 mmHg
Plan:
-s/p CABG x1 (Ao to RSVG to RPDA), bioprosthetic AVR, aortic root enlargement, TYRESE clip 08/22/24
-intubated, currently on CPAP, hoping to extubate shortly
-waking up
-BPs labile, on and off levo @2
-in SR with inferolateral ST inversion by post op EKG. in SR on review of tele
-for asa, plavix. hgb 11.5, follow post op
-continue post op care
-Preop was on regimen of bisoprolol/HCTZ as well as enalapril. Will follow blood pressures postop and solidify antihypertensive regimen prior to discharge
-d/w nursing
Progress Note - Picture Painter
Subjective
Date of Service: August 22, 2024
waking up. gave thumbs up
Objective
Labs:
08/22/24 11:54
Labs
Hgb 11.5 g/dL (13.0-18.0) L 08/22/24 11:54
Hct 32.4 % (39.0-52.0) L 08/22/24 11:54
Plt Count 169 10^3/uL (130-400) 08/22/24 11:54
PT 18.1 Sec (11.4-14.6) H 08/22/24 11:54
INR 1.44 08/22/24 11:54
APTT 32.3 Sec (23.4-35.0) 08/22/24 11:54
Sodium 140 mmol/L (135-145) 08/13/24 08:38
Potassium 4.7 mmol/L (3.5-5.1) 08/13/24 08:38
BUN 21 mg/dl (9-20) H 08/22/24 11:54
Creatinine 0.7 mg/dL (0.7-1.3) 08/22/24 11:54
Glucose 196 mg/dl (70-99) H 08/22/24 11:54
Vital Signs and I&O:
Vital Signs
Temp Pulse Resp BP Pulse Ox
98.6 F 86 22 88/66 99
08/22/24 14:00 08/22/24 14:00 08/22/24 14:00 08/22/24 14:00 08/22/24 14:05
Vital Signs
Temp Pulse Resp BP Pulse Ox
98.6 F 86 22 88/66 99
08/22/24 14:00 08/22/24 14:00 08/22/24 14:00 08/22/24 14:00 08/22/24 14:05
Intake & Output
08/20/24 08/21/24 08/22/24 08/23/24
07:59 07:59 07:59 07:59
Intake Total 425.2 / 425.2
Output Total 375 / 375
Balance 50.2 / 50.2
Physical Exam
Physical Exam
GEN: No distress, awake, alert. intubated
HEENT: supple, anicteric, mmm
LUNGS: CTA B/L, no wheezes
CV: Reg, S1/S2, no murmur, + rub
EXT: No cyanosis, clubbing, edema
SKIN: Warm, pink, dry. No rash. Sternotomy incision c/d/i. CTs in place
--- NOTE | 2024-08-22 14:52 | PTCARENOTE ---
CHG bath completed.
[2024-08-22 14:58] LABS: Glucose - Point of Care 160 mg/dl (70-99)
[2024-08-22 16:01] LABS: Glucose - Point of Care 103 mg/dl (70-99)
[2024-08-22 16:33] LABS: Hematocrit 34.9 % (39.0-52.0); Hemoglobin 12.6 g/dL (13.0-18.0); Platelet Count 217 10^3/uL (130-400)
[2024-08-22 17:07] LABS: Glucose - Point of Care 125 mg/dl (70-99)
[2024-08-22] MEDS: LOW STRENGTH ASPIRIN 81 MG PO (17:11)
[2024-08-22] MEDS: ANCEF 5 IV (17:11)
[2024-08-22 18:12] LABS: Glucose - Point of Care 100 mg/dl (70-99)
--- NOTE | 2024-08-22 19:15 | PTCARENOTE ---
Patient received from RN @1900. Patient lying comfortably in bed w/ call mejia in reach. NSR BP 122/62 HR 83. V-wires set to 40/10/2. Radial and pedal pulses present. No edema noted. Lung sounds clear anterior bilaterally. IS 1000 POX 98% 4L
NC. Mediastinal CT x2 set to -20 wall suction draining red fluid WNL. No crepitus, tidaling, or air leaks noted. Brice draining clear yellow urine WNL. Patient describes no pain. Sternal incision well approximated with surgical adhesive PATRICIA.
Right groin puncture well approximated w/ surgical adhesive. Right lef incision cristal wrap dry and intact. Left radial A-Line. RIJ cordis w/ sawn @ 48 PAP 25/01. All lines leveled and zeroed. Right PIV patent and intact. Patient on Insulin and
Levo see Worklist for further details and full assessment.
[2024-08-22 20:07] LABS: Glucose - Point of Care 93 mg/dl (70-99)
[2024-08-22] MEDS: ROXICODONE 5 MG PO (20:09)
[2024-08-22] MEDS: SENOKOT-S PO (20:12)
--- NOTE | 2024-08-22 20:49 | PTCARENOTE ---
SBP 120's-130's. Patient complains of pain. 5mg Audrey given. SBP continued at 120's-130's. Infusing Cardene per OSCAR Dougherty. Switched shortly after to Nitro ordered by OSCAR Dougherty. See Worklist for titrations.
[2024-08-22] MEDS: TYLENOL 1000 MG PO (21:58)
[2024-08-22] MEDS: PACERONE 200 MG PO (21:58)
[2024-08-22] MEDS: NEURONTIN 100 MG PO (21:59)
[2024-08-22 22:12] LABS: Glucose - Point of Care 176 mg/dl (70-99)
[2024-08-22] MEDS: LR 250 ML IV (22:24)
--- NOTE | 2024-08-22 23:15 | PTCARENOTE ---
Brice output 15 mL, CT PA Tsillina notified. [address] PA Tsillina. See MAR for details. CI 2.01 CO 4.17 SVR 1074.
[2024-08-22 23:58] LABS: Glucose - Point of Care 97 mg/dl (70-99)
[2024-08-22] MEDS: NOVOLIN R INSULIN INFUSION 100 IV (23:59)
[2024-08-23] VITALS (32 sets, daily range): BP systolic 95–146; BP diastolic 63–90; PULSE 92; O2SAT 98–99; BMI 31.9
--- NOTE | 2024-08-23 00:15 | PTCARENOTE ---
VSS BP 106/58 w/ Nitro @10. Patient Assessment unchanged. Brice output low ~ 20m/hr. CT KILO Dougherty notified.
[2024-08-23] MEDS: LR 250 ML IV (01:26)
[2024-08-23 02:05] LABS: Glucose - Point of Care 97 mg/dl (70-99)
[2024-08-23] MEDS: ANCEF 5 IV ×2 (02:10→11:24)
[2024-08-23 03:29] LABS: Hematocrit 31.8 % (39.0-52.0); Hemoglobin 11.3 g/dL (13.0-18.0); Mean Corp Hgb Conc. 35.5 g/dL (33.0-37.0); Mean Corpuscular Volume 87.1 fL (80.0-94.0); Platelet Count 185 10^3/uL (130-400); Red Blood Cell Count 3.65 10^6/uL (4.70-6.10); Red Cell Dist. Width 13.8 % (11.5-14.5); White Blood Cell Count 18.8 10^3/uL (4.8-10.8)
[2024-08-23 03:51] LABS: Blood Urea Nitrogen 24 mg/dl (9-20); Calcium 8.4 mg/dl (8.4-10.2); Carbon Dioxide 22 mmol/L (22-30); Chloride 110 mmol/L (98-107); Estimated Creatinine Clearance 95 ml/min; Glucose 133 mg/dl (70-99); Magnesium 1.9 mg/dl (1.6-2.3); Potassium 4.5 mmol/L (3.5-5.1); Sodium 140 mmol/L (135-145); eGFR > 60.00
--- NOTE | 2024-08-23 04:00 | PTCARENOTE ---
Patient assessment unchanged. NSR VSS. Labs drawn and obtained, CT KILO Dougherty notified. EKG obtained. Leads changed. Nitro titrating per protocol see Worklist for details.
[2024-08-23 04:07] LABS: Glucose - Point of Care 140 mg/dl (70-99)
--- NOTE | 2024-08-23 05:45 | PTCARENOTE ---
Fito removed Per CT KILO Dougherty. Patient OOB to chair.
[2024-08-23 05:59] LABS: Glucose - Point of Care 108 mg/dl (70-99)
[2024-08-23] MEDS: TYLENOL 1000 MG PO ×3 (06:17→22:39)
--- NOTE | 2024-08-23 07:44 | W.PN.ANS.POP ---
Anesthesia Post Operative
- Anesthesia Post Op Note
Vital Signs Stable-See Nursing Note: Yes
Airway Patent: Yes
Adequate Pain Control: Yes
Change in Mental Status: No
Current Postoperative Nausea & Vomiting: No
Anesthesia Complications: No
General Anesthetic Recall: No
Unplanned Admission: No
Post Op Hydration Adequate: Yes
--- NOTE | 2024-08-23 07:45 | W.PN.CT ---
Today's Communication / Plan
-
-pod #1
-no issues overnight
-sbp goal 90-110 overnight per AT
-drips: Nitro 30, Insulin
-CT outputs: 2 meds 205/425 in 12/24 hrs
-deline
-continue insulin
-current meds (ASA, Plavix, Lipitor, Lopressor, Amio, Protonix)
-encourage IS, OOB
Assessment / Plan
-
- Aortic valve stenosis with mv-CAD- s/p Surgical aortic valve replacement [25 mm Frazier Inspiris Resilia bioprosthesis]; Aortic root enlargement using bovine pericardial patch [Maria De Jesus Jett]; Coronary artery bypass grafting x 1 (Ao to RSVG to
RPDA); Left atrial appendage exclusion [45 mm clip] by Dr. Swan on 08/22/24, pod #1
- Intraop LINDA: LVEF on intraopTEE was 60% and 65% post procedure with no significant regional wma. He did have a moderate degree of left ventricular hypertrophy and his ventricle was kissing towards the end the case requiring more volume loading.
There was no prosthetic PVL or AI. Mean gradient across the prosthesis was 9 mmHg while hyperdynamic. His left atrial appendage was verified to be free of any thrombus or debris preoperatively and found to be totally occlusive postoperatively.
- Severe aortic valve stenosis
- Two-vessel coronary artery disease
- Hypertension
- Hyperlipidemia
- Class 1 obesity (BMI 31)
- Nephrolithiasis
- DM II (A1c 7.1)
- Chronic diastolic heart failure
- Acute postop blood loss anemia
- Acute postop atelectasis
- Acute postop hypovolemia with subsequent hypervolemia
Discussed patient care with: Nursing and Care Team
Subjective
-
Date of Service: August 23, 2024
Objective Data
-
PT 18.1 Sec (11.4-14.6) H 08/22/24 11:54
INR 1.44 08/22/24 11:54
APTT 32.3 Sec (23.4-35.0) 08/22/24 11:54
Vital Signs
Vital Signs
Temp Pulse Resp BP Pulse Ox
99 F 86 16 98/75 99
08/23/24 01:00 08/23/24 01:00 08/23/24 01:00 08/23/24 01:00 08/23/24 01:00
CT Intake/Output/Weight
08/22/24 08/22/24 08/23/24
06:59 18:59 06:59
Intake Total 628.6 / 1116.8 488.2 / 1116.8
Output Total 680 / 1015 335 / 1015
Balance -51.4 / 101.8 153.2 / 101.8
SaO2: 99
Physical Exam
-
General: Awake and AOx3
Cardiovascular: Regular rate & rhythm, No Murmurs and No Rub
Respiratory: Decreased Breath Sounds
Sternum: Stable
Incision: Clean, Dry and Intact
Extremities: No Edema
Abdomen: soft, nondistended, nontender, +decreased bowel sounds
Data Reviewed
-
Lab Results: Results Reviewed
Medications: Active Meds Reviewed
Chest X-Ray: Report Reviewed and Image Reviewed
ECG: Report Reviewed and Image Reviewed
--- NOTE | 2024-08-23 08:04 | W.PN.INTV ---
Today's Communication / Plan
Recommendations
Up OOB as tolerated
Insulin drip with goal BG 110�140
MAP >65
Removal of mediastinal chest tubes per CT surgery team
Pain control
Encourage incentive spirometer
Other Sports Coach Or Instructor services will continue to follow along while the patient remains in the CVICU. Once transferred to CVICU�telemetry then we will sign off at that time.
Assessment
-
Assessment: 69-year-old male non-smoker with a past medical history of nonrheumatic aortic valve stenosis, CAD, hypercholesterolemia, hypertension, DM type II and history of kidney stone who presents with surgical aortic valve replacement +
surgical revascularization. Patient known to the CT surgery service with last visit on 08/05/[address] Swan. Patient's recent echo from 06/14/2024 showed severe aortic stenosis with peak/mean gradients of 91/55 mmHg, respectively, with restricted
leaflet motion. Estimated PASP was WNL at 24 mmHg. LVEF was 60-65% with no regional WMA, and the RV was normal in size and function. Left heart cath on 07/01/2024 showed moderate CAD with 100% occlusion of the OM1 which fills via [id number]-[id number]
collaterals and 60% distal RCA stenosis with faint [id number]-js-irsuf collaterals filling the distal vessel. Also severe aortic stenosis with a mean gradient of [address] TAVR done on 07/17/2024 and there was no lung nodules, pleural effusions, no
significant incidental findings. A multidisciplinary team discussion agreed to move forward with surgical aortic valve replacement given his smaller size of his annulus and sinuses. He also had been offered surgical revascularization which he also
agreed to. Today he underwent CABG x 1 (Ao to RSVG to RPDA), aortic root enlargement using bovine pericardial patch, surgical aortic valve replacement with 25 mm bioprosthesis and a left atrial appendage exclusion with a 45 mm clip. There were no
immediate complications and he was transferred to the CVICU postoperatively for further care, and model and dye person services consulted for additional management/recommendations.
Chronic conditions NURSE PRACTITIONER HOME ASSESSMENTS: CAD, severe arctic stenosis, history of kidney stone, diabetes mellitus type 2, hypercholesterolemia, hypertension, chronic back pain
Impression:
#Multivessel CAD s/p CABG x 1 (Ao to RSVG to RPDA) + left atrial appendage exclusion with 45 mm clip - POD#1
#Severe aortic valve stenosis s/p surgical aortic valve replacement with 25 mm bioprosthesis - POD#1
#Acute anemia due to above
#DM type II (uncontrolled: HbA1c � 7.1 on 08/13/2024) complicated by hyperglycemia
#Hypertension
#Hyperlipidemia
#History of nephrolithiasis
#Chronic HFpEF
Plan:
Patient was successfully extubated on 08/22/2024, and currently is on room air breathing comfortably saturating 95-96%
Maintain SpO2 >90-94%
prn nebulized bronchodilators - not currently bronchospastic
Encourage incentive spirometer use q1hr while awake
Pulmonary artery catheter parameters will be followed
Pressors/antihypertensive/inotropes/diuretics will be provided as needed
Maintain MAP>65
Replete electrolytes with K>4, Mg>2
Monitor chest tube output (mediastinal chest tubes x 2)
Monitor hemoglobin
Monitor platelet count and coags
Transfuse blood products as needed to maintain Hb>7g/dL, plt>50k (given post-operative status)
CT surgery managing chest tubes
Monitor blood sugar to maintain euglycemia with goal BG 110-140
Insulin drip per protocol
Aspiration precautions
DVT prophylaxis
Early nutrition
Early mobilization
Other Sports Coach Or Instructor services will continue to follow along while the patient remains in the CVICU. Once transferred to CVICU�telemetry then we will sign off at that time.
Critical care statement: A total of 36 minutes of critical care time was provided for this patient today. This includes management of ventilator, spontaneous breathing trial, arterial blood gases, pressors, of unstable vital signs, evaluation of the
patient at bedside, reviewing the patient's pertinent medical records including radiographs, microbiology, laboratory evaluations, and discussion with primary team and critical care nursing.
Subjective Dataa
Subjective Data
Date of Service:
Date of Service: August 23, 2024
Chief Complaint: Other Sports Coach Or Instructor Follow Up
Subjective:
Patient was seen and evaluated today at bedside. On insulin drip at 10 units/h. On room air breathing comfortably saturating 96% with BP 102/73 and heart rate 91. No chest pain or headache or fevers or chills.
Review of Systems
General: Other (Negative unless mentioned above)
Objective Data
Data Reviewed
Vital Signs / I&O / Oxygen:
Vital Signs
Temp Pulse Resp BP Pulse Ox
98.7 F 97 18 102/73 94
08/23/24 07:00 08/23/24 08:57 08/23/24 07:00 08/23/24 08:57 08/23/24 08:00
Intake and Output
08/22/24 08/23/24 08/24/24
06:59 06:59 06:59
Intake Total 1788.1 / 1816.6 28.5 / 28.5
Output Total 1270 / 1295
Balance 518.1 / 521.6 3.5 / 3.5
SaO2 [CPAP] 99
SaO2 [SIMV] 98
SaO2 94
Nasal Cannula flow liters per 2
minute
Physical Exam
General: Respiratory Distress (negative), Comfortable, Chills (negative) and Sweats (negative)
HEENT: Normocephalic, Anicteric and Other (R-IJ cordis)
Cardiovascular: S1-S2 and Peripheral Edema (negative)
Respiratory: Clear, Wheeze (negative), Crackles (negative), Rhonchi (negative), Non-Labored Respirations and Stridor (negative)
GI: Soft, Non Distended, Non Tender and Normal Bowel Sounds
Neurology: AO x 3 and Tremors (negative)
Skin: Warm, Dry, Cyanosis (negative) and Jaundice (negative)
Labs/Micro/Reports
Lab Data
08/23/24 03:16
08/23/24 03:16
Laboratory Results
08/22/24 08/22/24
11:54 14:24
PT 18.1 H
INR 1.44
APTT 32.3
pH 7.42 7.40
pCO2 39 34 L
pO2 125 H 162 H
HCO3 25.3 21.1
O2 Delivery Level Not Reportable
--- NOTE | 2024-08-23 08:15 | PTCARENOTE ---
d/c [place]. weaned to RA. and iDa d/c'd will continue to [facility]. ST on monitor.
[2024-08-23 08:57] LABS: Glucose - Point of Care 90 mg/dl (70-99)
[2024-08-23] MEDS: LOPRESSOR 12.5 MG PO (08:57)
[2024-08-23] MEDS: LIPITOR 20 MG PO (08:57)
[2024-08-23] MEDS: PACERONE 200 MG PO ×3 (08:57→22:39)
[2024-08-23] MEDS: LOW STRENGTH ASPIRIN 81 MG PO (08:57)
[2024-08-23] MEDS: SENOKOT-S 1 TABLET PO ×2 (08:57→19:09)
[2024-08-23] MEDS: PLAVIX 75 MG PO (08:57)
[2024-08-23] MEDS: NEURONTIN 100 MG PO ×3 (08:57→22:40)
[2024-08-23] MEDS: MAGNESIUM OXIDE 500 MG PO ×2 (08:57→19:09)
[2024-08-23] MEDS: PROTONIX 40 MG PO (08:57)
[2024-08-23] MEDS: BACTROBAN 2% OINTMENT 1 APPLIC NASAL ×2 (08:58→20:22)
[2024-08-23] MEDS: NOVOLOG FLEXPEN SC ×3 (09:33→16:58)
--- NOTE | 2024-08-23 10:46 | W.PN.CARDCBS ---
Addendum entered and electronically signed by Isael Child MD 08/23/24 11:03:
I saw and examined the patient.
The UNDERGROUND UTILITY LOCATOR or PA's note was reviewed and I agree with the note.
Comment: General: Well developed, well nourished in NAD.
Neck: Supple, no JVD, HJR, carotids +2 B/L, no bruits bilaterally.
Heart: Non displaced PMI, RRR, no murmurs, No S3, S4, no rubs.
Lungs: Scattered rhonchi
Sternal dressings noted
Extremities: No clubbing, cyanosis or edema bilaterally.
Neuro: Grossly nonfocal, awake, alert and oriented x3.
Stable cardiology status status post CABG and AVR. Remains in sinus rhythm. Discussed with nursing and CT surgery.
Original Note:
Today's Communication / Plan
-
Continue postoperative care
In sinus rhythm
Impression / Plan
-
Primary Surgical Aides Teacher: Dr. MALINI Ortiz
Assessment:
Severe
CAD
s/p CABG x1 (Ao to RSVG to RPDA), bioprosthetic AVR, aortic root enlargement, TYRESE clip 08/22/24
HTN
HLD
DM2
History of nephrolithiasis
ECHO 06/14/2024: EF 60 to 65%, no regional wall motion abnormalities noted, severe with peak/mean gradients 91/55 mmHg, trace TR, PAP 24 mmHg
Plan:
- s/p CABG x1 (Ao to RSVG to RPDA), bioprosthetic AVR, aortic root enlargement, TYRESE clip 08/22/24
- Overall feeling well
- EKG sinus rhythm. Remains in sinus rhythm on review of telemetry as well
- Continue aspirin, Plavix. Hemoglobin stable at 11.3
- Continue postoperative care
- Encouraged IS
- Preop was on regimen of bisoprolol/HCTZ as well as enalapril. Will follow blood pressures postop and solidify antihypertensive regimen prior to discharge
- d/w nursing. d/w patient and at bedside
Progress Note - Surgical Aides Teacher
Subjective
Date of Service: August 23, 2024
Reports feeling sore and tired
Objective
Labs:
08/23/24 03:16
08/23/24 03:16
Labs
Hgb 11.3 g/dL (13.0-18.0) L 08/23/24 03:16
Hct 31.8 % (39.0-52.0) L 08/23/24 03:16
Plt Count 185 10^3/uL (130-400) 08/23/24 03:16
PT 18.1 Sec (11.4-14.6) H 08/22/24 11:54
INR 1.44 08/22/24 11:54
APTT 32.3 Sec (23.4-35.0) 08/22/24 11:54
Sodium 140 mmol/L (135-145) 08/23/24 03:16
Potassium 4.5 mmol/L (3.5-5.1) 08/23/24 03:16
BUN 24 mg/dl (9-20) H 08/23/24 03:16
Creatinine 0.8 mg/dL (0.7-1.3) 08/23/24 03:16
Glucose 133 mg/dl (70-99) H 08/23/24 03:16
Vital Signs and I&O:
Vital Signs
Temp Pulse Resp BP Pulse Ox
99.7 F 89 20 117/74 96
08/23/24 09:00 08/23/24 10:30 08/23/24 09:00 08/23/24 10:00 08/23/24 09:30
Vital Signs
Temp Pulse Resp BP Pulse Ox
99.7 F 89 20 117/74 96
08/23/24 09:00 08/23/24 10:30 08/23/24 09:00 08/23/24 10:00 08/23/24 09:30
Intake & Output
08/21/24 08/22/24 08/23/24 08/24/24
07:59 07:59 07:59 07:59
Intake Total 1816.6 / 1816.6 20.8 / 20.8
Output Total 1295 / 1295 100 / 100
Balance 521.6 / 521.6 -79.2 / -79.2
Physical Exam
Physical Exam
GEN: No distress, awake, alert, oriented x3. Sitting in chair
HEENT: supple, anicteric, mmm, EOMI
LUNGS: Decreased at bases, no wheezes
CV: Reg, S1/S2, no murmur
ABD: soft, BS+, NT/ND
EXT: No cyanosis, clubbing. Trace edema of bilateral lower extremity
NEURO: Gross non-focal
SKIN: Warm, pink, dry. No rash. Sternotomy dressing clean dry and intact. CTs in place
[2024-08-23] MEDS: NSS IV (11:25)
[2024-08-23 11:31] LABS: Glucose - Point of Care 190 mg/dl (70-99)
[2024-08-23 13:18] LABS: Glucose - Point of Care 167 mg/dl (70-99)
[2024-08-23] MEDS: FERRLECIT 110 MG IV (13:29)
--- NOTE | 2024-08-23 14:38 | CM ---
Chart reviewed. Patient is independent of ADLS, lives with her spouse in a split level house, 0 LINN, 0 DME. Plan is for the patient to return home with CT Transitional RN. CM to follow
--- NOTE | 2024-08-23 14:48 | PN.DE.MGMTRT ---
Insulin Management
- -
08/23/2024 Diabetes Management Consult Follow up
Patient admitted 08/22 for CABG x1 with aortic valve replacement. PMH HCL, HTN, diabetes, severe aortic stenosis. Prior to admission was taking Trulicity .75 weekly on Monday, Glimepiride 8 mg daily, Repaglinide 4 mg TID, metformin 1000 mg BID,
invokana 300 mg daily. A1C 7.1%, cr .9, eGFR > 60.
POD 1 Patient is awake alert and oriented able to discuss diabetes care. States he sees Christopher Galan for diabetes care and confirmed he take both repaglinide and glimepiride. Patient states he is concerned about the cost of Invokana $600
per month. Requested CM to check cost of Farxiga or Jardiance.
Will continue glycemic protocol insulin infusion today, to transition tomorrow 08/24. Discussed with CLINICAL ANALYST all medications for transition.
Discussed with nurse.
Will follow
Diabetes History
- -
Type of Diabetes: 2
Pre-Admission Diabetes Regimen
08/23/24
03:16
Creatinine 0.8
Lab Results
Hemoglobin A1c 7.1 % (4.0-5.6) H 08/13/24 08:38
Insulin Pump Settings
IP Diabetes Regimen
08/22/24 08/22/24 08/22/24
14:56 15:59 17:06
Glucose
POC Glucose 160 H 103 H 125 H
08/22/24 08/22/24 08/22/24
18:10 20:04 22:10
Glucose
POC Glucose 100 H 93 176 H
08/22/24 08/23/24 08/23/24
23:56 02:02 03:16
Glucose 133 H
POC Glucose 97 97
08/23/24 08/23/24 08/23/24
04:05 05:57 08:56
Glucose
POC Glucose 140 H 108 H 90
08/23/24 08/23/24
11:30 13:17
Glucose
POC Glucose 190 H 167 H
Patient Education
--- NOTE | 2024-08-23 15:34 | CM ---
Pricing on Farxiga and Jardiance both need a prior authorization. Prior authorization will need to be called into [phone]
[2024-08-23 16:18] LABS: Glucose - Point of Care 59 mg/dl (70-99)
[2024-08-23 16:52] LABS: Glucose - Point of Care 87 mg/dl (70-99)
[2024-08-23 17:22] LABS: Glucose - Point of Care 114 mg/dl (70-99)
--- NOTE | 2024-08-23 18:45 | PTCARENOTE ---
AFIB on monitor. TOLL TEST WORKER notified. order for bolus infused. will continue to monitor.
[2024-08-23] MEDS: LOPRESSOR 25 MG PO (19:09)
[2024-08-23] MEDS: CORDARONE 103 MG IV (19:14)
[2024-08-23] MEDS: CORDARONE 518 MG IV (19:14)
[2024-08-23 19:27] LABS: Glucose - Point of Care 241 mg/dl (70-99)
--- NOTE | 2024-08-23 20:10 | PTCARENOTE ---
Patient received from RN @1900. Patient lying in bed comfortably w/ call mejia in reach. AOx4. Currently NSR, BP 128/83 HR 97. Radial and pedal pulses present. Trace edema noted on right ankle. Heart sounds audible. V-wires insulated. Lungs
clear bilaterally. Diminished in basses. IS 1000 POX 95% RA. Bowel sounds hypoactive. Mediastinal CT x 2 set to -20 wall suction draining dark red fluid WNL. No crepitus, tidaling, or air leaks noted. Sternal incision approximated w/ surgical
glue ACCOUNT FINANCIAL MANAGER. Right groin puncture approximated and PATRICIA. Right knee incision approximated and ACCOUNT FINANCIAL MANAGER. Lreft radial dressing dry and intact. RIJ cordis and Right wrist PIV patent and intact. Amio bolus and Amio drip started due to A. Fib earlier in the
day. Insulin titrating per protocol.
[2024-08-23 20:26] LABS: Glucose - Point of Care 204 mg/dl (70-99)
[2024-08-23 21:32] LABS: Glucose - Point of Care 187 mg/dl (70-99)
[2024-08-23] MEDS: NOVOLIN R INSULIN INFUSION 100 IV (21:52)
[2024-08-23 22:34] LABS: Glucose - Point of Care 159 mg/dl (70-99)
--- NOTE | 2024-08-23 23:18 | PTCARENOTE ---
Patient voided in urinal. CHG cloth bath performed. Leads changed. Chest tube dressing changed. Gown changed.
[2024-08-23 23:35] LABS: Glucose - Point of Care 152 mg/dl (70-99)
[2024-08-24] VITALS (19 sets, daily range): BP systolic 112–144; BP diastolic 67–85; PULSE 83; O2SAT 98–100; BMI 32.3
--- NOTE | 2024-08-24 00:15 | PTCARENOTE ---
Patient assessment unchanged. VSS. Insulin and amio infusing per protocol.
[2024-08-24 00:34] LABS: Glucose - Point of Care 181 mg/dl (70-99)
[2024-08-24 01:56] LABS: Glucose - Point of Care 193 mg/dl (70-99)
[2024-08-24 03:08] LABS: Glucose - Point of Care 188 mg/dl (70-99)
[2024-08-24 03:27] LABS: Hematocrit 32.6 % (39.0-52.0); Hemoglobin 11.2 g/dL (13.0-18.0); Mean Corp Hgb Conc. 34.4 g/dL (33.0-37.0); Mean Corpuscular Hgb 30.7 pg (27.0-31.0); Mean Corpuscular Volume 89.3 fL (80.0-94.0); Mean Platelet Volume 9.8 fL (7.4-10.4); Platelet Count 170 10^3/uL (130-400); Red Blood Cell Count 3.65 10^6/uL (4.70-6.10); Red Cell Dist. Width 14.5 % (11.5-14.5); White Blood Cell Count 19.1 10^3/uL (4.8-10.8)
[2024-08-24 03:40] LABS: Blood Urea Nitrogen 25 mg/dl (9-20); Calcium 8.5 mg/dl (8.4-10.2); Carbon Dioxide 20 mmol/L (22-30); Chloride 103 mmol/L (98-107); Estimated Creatinine Clearance 85 ml/min; Glucose 252 mg/dl (70-99); Magnesium 1.9 mg/dl (1.6-2.3); Potassium 4.2 mmol/L (3.5-5.1); Sodium 134 mmol/L (135-145); eGFR > 60.00
[2024-08-24 03:51] LABS: Glucose - Point of Care 196 mg/dl (70-99)
[2024-08-24 03:51] LABS: Glucose - Point of Care 204 mg/dl (70-99)
--- NOTE | 2024-08-24 04:00 | PTCARENOTE ---
Assessment unchanged. VSS. BP elevated and CT PA notified. Insulin and Amio infusing per protocol.
[2024-08-24 04:53] LABS: Glucose - Point of Care 138 mg/dl (70-99)
[2024-08-24 05:51] LABS: Glucose - Point of Care 103 mg/dl (70-99)
[2024-08-24 06:56] LABS: Glucose - Point of Care 102 mg/dl (70-99)
[2024-08-24] MEDS: TYLENOL 1000 MG PO ×3 (07:10→21:07)
[2024-08-24] MEDS: NOVOLIN R INSULIN INFUSION 100 IV (07:11)
--- NOTE | 2024-08-24 07:21 | W.PN.CT ---
Today's Communication / Plan
-
-pod #2
-no issues overnight
-drips: Amio 0.5, Insulin
-CT outputs: 2 meds 120/365 in 12/24 hrs
-transition from insulin to po meds
-current meds (ASA, Plavix, Lipitor, Lopressor, Amio, Protonix)
-encourage IS, OOB
Assessment / Plan
-
- Aortic valve stenosis with mv-CAD- s/p Surgical aortic valve replacement [25 mm Frazier Inspiris Resilia bioprosthesis]; Aortic root enlargement using bovine pericardial patch [Maria De Jesus Jett]; Coronary artery bypass grafting x 1 (Ao to RSVG to
RPDA); Left atrial appendage exclusion [45 mm clip] by Dr. Swan on 08/22/24, pod #2
- Intraop LINDA: LVEF on intraopTEE was 60% and 65% post procedure with no significant regional wma. He did have a moderate degree of left ventricular hypertrophy and his ventricle was kissing towards the end the case requiring more volume loading.
There was no prosthetic PVL or AI. Mean gradient across the prosthesis was 9 mmHg while hyperdynamic. His left atrial appendage was verified to be free of any thrombus or debris preoperatively and found to be totally occlusive postoperatively.
- Severe aortic valve stenosis
- Two-vessel coronary artery disease
- Hypertension
- Hyperlipidemia
- Class 1 obesity (BMI 31)
- Nephrolithiasis
- DM II (A1c 7.1)
- Chronic diastolic heart failure
- Acute postop blood loss anemia
- Acute postop atelectasis
- Acute postop hypovolemia with subsequent hypervolemia
- Acute postop paroxysmal a-fib - tx with Amio bolus and drip
Discussed patient care with: Nursing and Care Team
Subjective
-
Date of Service: August 24, 2024
Objective Data
-
PT 18.1 Sec (11.4-14.6) H 08/22/24 11:54
INR 1.44 08/22/24 11:54
APTT 32.3 Sec (23.4-35.0) 08/22/24 11:54
Vital Signs
Vital Signs
Temp Pulse Resp BP Pulse Ox
98.7 F 84 15 140/79 95
08/23/24 23:59 08/24/24 02:00 08/24/24 01:56 08/24/24 02:00 08/24/24 02:[address]
CT Intake/Output/Weight
08/23/24 08/23/24 08/24/24
06:59 18:59 06:59
Intake Total 1159.5 / 1816.6 135.7 / 454.4 318.7 / 454.4
Output Total 590 / 1295 315 / 630 315 / 630
Balance 569.5 / 521.6 -179.3 / -175.6 3.7 / -175.6
SaO2: 95
Physical Exam
-
Cardiovascular: Regular rate & rhythm, No Murmurs and No Rub
Respiratory: Decreased Breath Sounds
Sternum: Stable
Incision: Clean, Dry and Intact
Extremities: Other (trace edema, 2+ DPs b/l)
Abdomen: soft, nontender, nondistended, + bowel sounds
Data Reviewed
-
Lab Results: Results Reviewed
Medications: Active Meds Reviewed
Chest X-Ray: Report Reviewed and Image Reviewed
ECG: Report Reviewed and Image Reviewed
[2024-08-24] MEDS: BACTROBAN 2% OINTMENT 1 APPLIC NASAL ×2 (07:34→19:21)
[2024-08-24] MEDS: LIPITOR 20 MG PO (07:59)
[2024-08-24] MEDS: MAGNESIUM OXIDE 500 MG PO (07:59)
[2024-08-24] MEDS: PROTONIX 40 MG PO (07:59)
[2024-08-24] MEDS: SENOKOT-S PO ×2 (07:59→19:23)
[2024-08-24] MEDS: NEURONTIN 100 MG PO ×3 (07:59→21:07)
[2024-08-24] MEDS: LOW STRENGTH ASPIRIN 81 MG PO (07:59)
[2024-08-24] MEDS: PACERONE 200 MG PO ×3 (07:59→21:08)
[2024-08-24] MEDS: LOPRESSOR 25 MG PO ×2 (07:59→19:21)
[2024-08-24] MEDS: PLAVIX 75 MG PO (07:59)
[2024-08-24 08:05] LABS: Glucose - Point of Care 111 mg/dl (70-99)
--- NOTE | 2024-08-24 08:14 | W.PN.INTV ---
Today's Communication / Plan
Recommendations
Up OOB as tolerated
Goal BG 110�140 - being taken off insulin gtt this afternoon
MAP >65
Removal of mediastinal chest tubes per CT surgery team
Pain control
Encourage incentive spirometer
Patient will be downgraded later this afternoon after insulin drip is stopped. Once transferred to CVICU�telemetry status then we will sign off at that time. Thank you for allowing us to be involved in the care of this patient and please call back
if there are any questions or concerns.
Assessment
-
Assessment: 69-year-old male non-smoker with a past medical history of nonrheumatic aortic valve stenosis, CAD, hypercholesterolemia, hypertension, DM type II and history of kidney stone who presents with surgical aortic valve replacement +
surgical revascularization. Patient known to the CT surgery service with last visit on 08/05/[address] Swan. Patient's recent echo from 06/14/2024 showed severe aortic stenosis with peak/mean gradients of 91/55 mmHg, respectively, with restricted
leaflet motion. Estimated PASP was WNL at 24 mmHg. LVEF was 60-65% with no regional WMA, and the RV was normal in size and function. Left heart cath on 07/01/2024 showed moderate CAD with 100% occlusion of the OM1 which fills via [id number]
collaterals and 60% distal RCA stenosis with faint [id number] collaterals filling the distal vessel. Also severe aortic stenosis with a mean gradient of [address] TAVR done on 07/17/2024 and there was no lung nodules, pleural effusions, no
significant incidental findings. A multidisciplinary team discussion agreed to move forward with surgical aortic valve replacement given his smaller size of his annulus and sinuses. He also had been offered surgical revascularization which he also
agreed to. Today he underwent CABG x 1 (Ao to RSVG to RPDA), aortic root enlargement using bovine pericardial patch, surgical aortic valve replacement with 25 mm bioprosthesis and a left atrial appendage exclusion with a 45 mm clip. There were no
immediate complications and he was transferred to the CVICU postoperatively for further care, and spray ii painter services consulted for additional management/recommendations.
Chronic conditions PRINT DECORATOR: CAD, severe arctic stenosis, history of kidney stone, diabetes mellitus type 2, hypercholesterolemia, hypertension, chronic back pain
Impression:
#Multivessel CAD s/p CABG x 1 (Ao to RSVG to RPDA) + left atrial appendage exclusion with 45 mm clip - POD#2
#Severe aortic valve stenosis s/p surgical aortic valve replacement with 25 mm bioprosthesis - POD#2
#Acute anemia due to above
#DM type II (uncontrolled: HbA1c � 7.1 on 08/13/2024) complicated by hyperglycemia
#Hypertension
#Hyperlipidemia
#History of nephrolithiasis
#Chronic HFpEF
Plan:
Patient was successfully extubated on 08/22/2024, and currently is on room air breathing comfortably saturating 95-96%
Maintain SpO2 >90-94%
prn nebulized bronchodilators - not currently bronchospastic
Encourage incentive spirometer use q1hr while awake
Pressors/antihypertensive/inotropes/diuretics will be provided as needed
Maintain MAP>65
Replete electrolytes with K>4, Mg>2
Monitor chest tube output (mediastinal chest tubes x 2)
Monitor hemoglobin
Monitor platelet count and coags
Transfuse blood products as needed to maintain Hb>7g/dL, plt>50k (given post-operative status)
CT surgery managing chest tubes
Monitor blood sugar to maintain euglycemia with goal BG 110-140
Insulin drip to be stopped later this afternoon
Aspiration precautions
DVT prophylaxis
Early nutrition
Early mobilization
Patient will be downgraded later this afternoon after insulin drip is stopped. Once transferred to CVICU�telemetry status then we will sign off at that time. Thank you for allowing us to be involved in the care of this patient and please call back
if there are any questions or concerns.
Total time spent today was 59 minutes for this encounter. Time includes reviewing laboratory test/imaging results, reviewing pertinent medical records, obtaining and reviewing medical history, performing an appropriate exam, ordering medications,
tests and procedures. Time also includes documentation of this encounter, coordinating patient care and communicating with other healthcare professionals. Total time does not include separately billed tests performed on this date of service.
Subjective Dataa
Subjective Data
Date of Service:
Date of Service: August 24, 2024
Chief Complaint: Airport Baggage Screener Follow Up
Subjective:
Patient seen and evaluated this morning. He is resting in bed no acute distress. Heart rate 86, BP 121/86 and saturating 95% on room air. On amiodarone at 0.5 mg/min + insulin gtt. No SOB, nausea, fevers or chills. He mainly feels tired.
Review of Systems
General: Other (Negative unless mentioned above)
Objective Data
Data Reviewed
Vital Signs / I&O / Oxygen:
Vital Signs
Temp Pulse Resp BP Pulse Ox
99 F 93 16 129/81 93
08/24/24 03:52 08/24/24 08:00 08/24/24 06:55 08/24/24 07:00 08/24/24 07:00
Intake and Output
08/23/24 08/24/24 08/25/24
06:59 06:59 06:59
Intake Total 1788.1 / 1816.6 648.2 / 648.2 36.7 / 36.7
Output Total 1270 / 1295 685 / 685 40 / 40
Balance 518.1 / 521.6 -36.8 / -36.8 -3.3 / -3.3
SaO2 [CPAP] 99
SaO2 [SIMV] 98
SaO2 93
Nasal Cannula flow liters per 2
minute
Physical Exam
General: Respiratory Distress (negative), Comfortable, Chills (negative) and Sweats (negative)
HEENT: Normocephalic and Anicteric
Cardiovascular: S1-S2 and Peripheral Edema (negative)
Respiratory: Clear, Wheeze (negative), Crackles (negative), Rhonchi (negative), Non-Labored Respirations and Stridor (negative)
GI: Soft, Non Distended, Non Tender and Normal Bowel Sounds
Neurology: Tremors (negative) and Other (Drowsy but easily arousable and answering questions appropriately)
Skin: Warm, Dry, Cyanosis (negative) and Jaundice (negative)
Labs/Micro/Reports
Lab Data
08/24/24 03:20
08/24/24 03:20
[2024-08-24] MEDS: NOVOLOG FLEXPEN 8 UNITS SC (08:31)
[2024-08-24 10:03] LABS: Glucose - Point of Care 232 mg/dl (70-99)
[2024-08-24 11:46] LABS: Glucose - Point of Care 129 mg/dl (70-99)
[2024-08-24 13:34] LABS: Glucose - Point of Care 61 mg/dl (70-99)
--- NOTE | 2024-08-24 14:06 | PTCARENOTE ---
d/c insulin gtt as ordered. patient oob in chair. eating lunch
[2024-08-24 14:10] LABS: Glucose - Point of Care 64 mg/dl (70-99)
[2024-08-24] MEDS: PRANDIN 4 MG PO ×2 (14:16→18:07)
[2024-08-24] MEDS: AMARYL 8 MG PO (14:25)
[2024-08-24] MEDS: NSS IV (14:25)
[2024-08-24] MEDS: GLUCOPHAGE 1000 MG PO ×2 (14:25→19:21)
[2024-08-24] MEDS: FERRLECIT 110 MG IV (14:25)
[2024-08-24 14:37] LABS: Glucose - Point of Care 127 mg/dl (70-99)
[2024-08-24] MEDS: NOVOLOG FLEXPEN SC (14:51)
[2024-08-24 18:15] LABS: Glucose - Point of Care 192 mg/dl (70-99)
[2024-08-24] MEDS: NOVOLOG FLEXPEN-MODERATE RESISTANCE 1 UNITS SC (18:36)
--- NOTE | 2024-08-24 19:15 | PTCARENOTE ---
Patient received from RN @ 1900. Patient sitting in chair comfortably w/ call mejia in reach. Patient ambulated back to bed. AOx4. NSR BP 134/75 HR 91. Heart sounds audible. Radial and pedal pulses present bilaterally. Generalized +1 edema
noted. V-wires insulated. POX 97% RA. IS 1500. Lungs clear bilaterally and diminished in the bases. Voiding clear yellow urine. Bowel sounds normoactive. Sternal dressing dry and intact. Chest tube dressing dry and intact. Right groin
puncture approximated and intact. Ecchymosis noted around groin puncture. Right knee incision approximated and intact. RIJ cordis patent and intact. Right PIV patent and intact. Finishing Amio drip. Magnesium held due to loose stools per CT
MISSAEL Galvan.
[2024-08-24] MEDS: MAGNESIUM OXIDE PO (19:29)
[2024-08-24 21:08] LABS: Glucose - Point of Care 230 mg/dl (70-99)
[2024-08-24] MEDS: NOVOLOG FLEXPEN-MODERATE RESISTANCE 3 UNITS SC (21:53)
--- NOTE | 2024-08-24 22:00 | PTCARENOTE ---
Blood sugar elevated. CT RUBBER FACTORY WORKER Cole notified. 3 units Insulin given per CT RUBBER FACTORY WORKER Cole. See MAR for details.
[2024-08-25] VITALS: BP 104/74
--- NOTE | 2024-08-25 00:28 | PTCARENOTE ---
Assessment unchanged. VSS. Patient sleeping w/ call mejia in reach.
[2024-08-25 03:09] VITALS: BP 118/80
[2024-08-25 04:00] VITALS: BP 126/74
--- NOTE | 2024-08-25 04:28 | PTCARENOTE ---
Assessment unchanged. VSS. Labs drawn
[2024-08-25 04:30] LABS: Hematocrit 29.3 % (39.0-52.0); Hemoglobin 10.3 g/dL (13.0-18.0); Mean Corp Hgb Conc. 35.2 g/dL (33.0-37.0); Mean Corpuscular Hgb 31.5 pg (27.0-31.0); Mean Corpuscular Volume 89.6 fL (80.0-94.0); Mean Platelet Volume 10.1 fL (7.4-10.4); Platelet Count 159 10^3/uL (130-400); Red Blood Cell Count 3.27 10^6/uL (4.70-6.10); White Blood Cell Count 14.7 10^3/uL (4.8-10.8)
[2024-08-25 04:39] LABS: Blood Urea Nitrogen 19 mg/dl (9-20); Calcium 7.9 mg/dl (8.4-10.2); Carbon Dioxide 25 mmol/L (22-30); Chloride 104 mmol/L (98-107); Estimated Creatinine Clearance 97 ml/min; Glucose 186 mg/dl (70-99); Magnesium 1.8 mg/dl (1.6-2.3); Potassium 4.3 mmol/L (3.5-5.1); Sodium 135 mmol/L (135-145); eGFR > 60.00
--- NOTE | 2024-08-25 05:52 | W.PN.CT ---
Today's Communication / Plan
-
-pod #3
-no issues overnight
-lopressor increased to 25 mg
-wires/CT out
-off insulin gtt
-current meds (ASA, Plavix, Lipitor, Lopressor, Amio, Protonix)
-encourage IS, OOB
Assessment / Plan
-
- Aortic valve stenosis with mv-CAD- s/p Surgical aortic valve replacement [25 mm Frazier Inspiris Resilia bioprosthesis]; Aortic root enlargement using bovine pericardial patch [Maria De Jesus Jett]; Coronary artery bypass grafting x 1 (Ao to RSVG to
RPDA); Left atrial appendage exclusion [45 mm clip] by Dr. Swan on 08/22/24, pod #3
- Intraop LINDA: LVEF on intraopTEE was 60% and 65% post procedure with no significant regional wma. He did have a moderate degree of left ventricular hypertrophy and his ventricle was kissing towards the end the case requiring more volume loading.
There was no prosthetic PVL or AI. Mean gradient across the prosthesis was 9 mmHg while hyperdynamic. His left atrial appendage was verified to be free of any thrombus or debris preoperatively and found to be totally occlusive postoperatively.
- Severe aortic valve stenosis
- Two-vessel coronary artery disease
- Hypertension
- Hyperlipidemia
- Class 1 obesity (BMI 31)
- Nephrolithiasis
- DM II (A1c 7.1)
- Chronic diastolic heart failure
- Acute postop blood loss anemia
- Acute postop atelectasis
- Acute postop hypovolemia with subsequent hypervolemia
- Acute postop paroxysmal a-fib - tx with Amio bolus and drip
Subjective
-
Date of Service: August 25, 2024
Objective Data
-
Lab Results
08/25/24 04:10
08/25/24 04:10
PT 18.1 Sec (11.4-14.6) H 08/22/24 11:54
INR 1.44 08/22/24 11:54
APTT 32.3 Sec (23.4-35.0) 08/22/24 11:54
Vital Signs
Vital Signs
Temp Pulse Resp BP Pulse Ox
98.6 F 83 16 118/80 98
08/25/24 03:00 08/25/24 03:10 08/25/24 03:00 08/25/24 03:09 08/25/24 03:10
CT Intake/Output/Weight
08/24/24 08/24/24 08/25/24
06:59 18:59 06:59
Intake Total 512.5 / 648.2 136.8 / 183.5 46.7 / 183.5
Output Total 370 / 685 60 / 60
Balance 142.5 / -36.8 76.8 / 123.5 46.7 / 123.5
SaO2: 98
Physical Exam
-
General: Awake and Oriented
Cardiovascular: Regular rate & rhythm, No Murmurs and No Rub
Respiratory: Clear and Equal
Sternum: Stable
Incision: Clean, Dry and Intact
Extremities: No Edema
Data Reviewed
-
Lab Results: Results Reviewed
Medications: Active Meds Reviewed
Chest X-Ray: Report Reviewed
ECG: Report Reviewed
[2024-08-25 05:58] VITALS: BMI 32.3
[2024-08-25] MEDS: TYLENOL 1000 MG PO (06:33)
[2024-08-25 07:36] VITALS: BP 126/71
[2024-08-25] MEDS: LOPRESSOR 25 MG PO ×2 (07:42→09:29)
[2024-08-25] MEDS: PRANDIN 4 MG PO ×2 (07:42→12:52)
[2024-08-25] MEDS: MAGNESIUM OXIDE 500 MG PO (07:42)
[2024-08-25] MEDS: PROTONIX 40 MG PO (07:42)
[2024-08-25] MEDS: LIPITOR 20 MG PO (07:42)
[2024-08-25] MEDS: AMARYL 8 MG PO (07:42)
[2024-08-25] MEDS: GLUCOPHAGE 1000 MG PO (07:42)
[2024-08-25] MEDS: PACERONE 200 MG PO (07:42)
[2024-08-25] MEDS: NEURONTIN 100 MG PO (07:43)
[2024-08-25] MEDS: PLAVIX 75 MG PO (07:43)
[2024-08-25] MEDS: LOW STRENGTH ASPIRIN 81 MG PO (07:43)
[2024-08-25] MEDS: BACTROBAN 2% OINTMENT 1 APPLIC NASAL (07:43)
[2024-08-25] MEDS: SENOKOT-S PO (07:44)
[2024-08-25 07:50] LABS: Glucose - Point of Care 232 mg/dl (70-99)
--- NOTE | 2024-08-25 08:29 | PTCARENOTE ---
Received pt from warehouse supervisor 3rd shift RN; pt AAOX3 and resting comfortably in chair; NSR on monitor and VSS; RIJ Cordis and PIV x1 patent; Epicardial V wire insulated; Lungs diminished; IS to 1500; positive bowel sounds; pt voiding yellow urine; +1
generalized edema; palpable pulses throughout; all surgical sites C/D?I; see nursing documentation for further details.
[2024-08-25 11:32] VITALS: BP 120/85
[2024-08-25] MEDS: LASIX 40 MG PO (12:52)
--- NOTE | 2024-08-25 13:12 | W.DCSUMMARY ---
Discharge Summary
Discharge Data
Date of Admission: 08/22/24
Date of Discharge: 08/25/24
-
Pending Results: No
Hospital Course
Primary care physician: Luis Enrique Mccullough
Outpatient kennel manager: Lynn Ortiz
Inpatient consultants: B[facility]
Procedures:
1. 08/22/24 Aortic valve replacement with #25 Inspiris, root enlargement with bovine pericardial patch, CABG x1 (SVG-PDA), ELAA #45 clip
Primary Diagnosis:
1. Severe aortic stenosis
2. Coronary artery disease
Secondary Diagnoses:
1. Hypertension
2. Hyperlipidemia
3. Non Insulin-dependent diabetes, A1c 7.1
4. Class I obesity with a BMI of 31
5. Chronic diastolic heart failure
6. History of nephrolithiasis
7. Acute postop blood loss anemia, stable
8. Postoperative atrial fibrillation, resolved
HPI: 69-year-old male who has been followed as an outpatient for aortic stenosis, most recent echo demonstrates preserved ejection fraction with now severe with a mean gradient of 52 mmHg. Left heart cath demonstrated a chronically occluded OM
and distal RCA stenosis. Patient was therefore referred for surgical evaluation. After all preoperative workup was completed he was deemed a suitable candidate to undergo the procedure.
Hospital course: Patient was brought in electively on 08/22/2024 where he underwent an aortic valve replacement with #25 Inspiris bioprosthetic valve, root enlargement with a bovine pericardial patch, CABG x 1 with saphenous vein graft to PDA, left
atrial appendage clip with #45 atriclip without any perioperative complications. He was transferred to CVICU per protocol on Levophed at 2, insulin and Precedex. He remained hemodynamically stable and was extubated later that afternoon. Patient
main stable overnight on postop day 1 he is off all vasoactive drips he was aligned without incident. Beta-samina was titrated up for borderline sinus tachycardia. Patient went into A-fib later that evening and received amiodarone bolus and drip
protocol. On postop day 2 he is in sinus rhythm, insulin drip converted to oral meds with sliding scale. Mediastinal drains removed without incident on postop day 3 he remains stable in sinus rhythm. Patient is feeling well and ambulatory Cordis
is discontinued without incident beta-samina titrated up. Temporary pacing wires were cut at the level of the skin. 2 view chest x-ray demonstrated small bilateral pleural effusions. Patient feeling well enough for discharge to home in the care
of his family with close follow-up with transitional care nurse from [facility].
Home medication changes: New prescription for Plavix for vein graft patency, to be taken for 1 month (non ACS). Prescription provided for Protonix in place of omeprazole for the time being while on Plavix. New prescription provided for metoprolol
50 mg p.o. twice daily, bisoprolol/hctz and enalapril held at this time in favor of titration of beta-samina. Okay to add back as blood pressure allows. Patient instructed to take amiodarone 200 mg p.o. twice daily x 2 weeks, then once daily
until otherwise instructed for his postoperative atrial fibrillation. 7-day supply of low-dose Lasix and potassium supplementation provided for postop volume overload.
Discharge Plan
-
Patient Disposition: Home (Routine Discharge)
Discharge Diagnosis/Procedures: AVR with root enlargement, CABG x 1, left atrial appendage clip
Condition: Good
Diet: Low Cholesterol, Low Sodium and Diabetic, Carb Controlled
Activity: No strenuous activity
Driving Restrictions: Not until seen by your Dr
Bathing Restrictions: OK to Shower
Other Services: Cardiac Rehab
Specialty Instructions: Weigh Daily- Call MD for wt gain/loss 3 lbs overnight/5 lbs in 1 week
Activity Restrictions/Additional Instructions:
ACTIVITY:
-No strenuous activity: no heavy lifting, pushing, pulling anything over 15 pounds for one month
-continue to use stairs as tolerated
DRIVING RESTRICTIONS:
-No driving for one month or until approved by your surgeon
WOUND CARE:
-Shower daily. Use soap & water.
-No lotions, creams or powders on incision area.
DIET:
-continue a low fat/low cholesterol diet.
-IF you are diabetic, continue carb controlled diet.
CARDIAC REHAB:
-Please make appointment to start in 5-6 weeks with your local hospital program. (See Cardiac Rehabilitation Discharge Booklet).
SPECIALTY INSTRUCTIONS:
-Weigh yourself daily. Call your physician for any weight gain/loss of 3 lbs overnight or 5 lbs in one week.
-REPORT any clicking noise or uneven appearance of your sternum to your surgeon immediately.
-If you smoke, you are instructed to quit. The [place] smoking hotline phone number is [phone]
Referrals:
CT Transitional Care Nurse [Outside] (The Cardiothoracic Transitional Care Nurse will call you to set up a visit in 1-2 days.)
Lashawn Weldon PA-C [Specified Professional Personl] - 10/02/24 2:00 pm
Joaquim Galan MD [Family Provider] -
[place]ana Swan MD [Active] - 09/25/24 1:00 pm
Violetta Prieto NP [Specified Professional Personl] -
Prescriptions:
New
amiodarone 200 mg Tablet
200 mg PO BID Qty: 60 0RF
Rx Instructions:
take twice daily for 2 weeks (until 09/08), then once daily until otherwise directed
clopidogrel 75 mg Tablet
75 mg PO DAILY Qty: 30 0RF
acetaminophen 325 mg Tablet
650 mg PO Q6HPRN PRN (Reason: mild pain,headache,temp >101F ) Qty: 0 0RF
metoprolol tartrate 50 mg Tablet
50 mg PO BID Qty: 60 1RF
pantoprazole 40 mg Tablet,Delayed Release (Dr/Ec)
40 mg PO DAILY Qty: 30 1RF
Rx Instructions:
take instead of omeprazole while on plavix
potassium chloride 10 mEq tablet extended release
10 meq PO DAILY Qty: 7 0RF
furosemide [Lasix] 20 mg tablet
20 mg PO DAILY Qty: 7 0RF
Rx Instructions:
Take daily for 7 days, then stop
Continued
repaglinide 2 mg Tablet
4 mg PO TIDWMEAL
atorvastatin 20 mg Tablet
20 mg PO DAILY
metformin 1,000 mg Tablet
1,000 mg PO BID
glimepiride 4 mg Tablet
8 mg PO DAILY
Invokana 300 mg Tablet
300 mg PO DAILY
Centrum Adult 50 Plus 80 mcg Tablet,Chewable
1 tab PO DAILY
Trulicity 0.75 mg/0.5 mL Pen Injector
0.75 mg SC WE
aspirin 81 mg tablet,delayed release (DR/EC)
81 mg PO DAILY
Discontinued
enalapril maleate 20 mg Tablet
20 mg PO HS
bisoprolol-hydrochlorothiazide 5-6.25 mg Tablet
1 tab PO DAILY
omeprazole 40 mg Capsule,Delayed Release(Dr/Ec)
40 mg PO DAILY
Discharge Orders:
Discharge Patient (As Directed); Ordered 08/25/24
Ordered By: Rita Jordan
Care Plan Goals
Care Plan Goals:
Problem: Readiness for enhanced knowledge related to diagnosis and treatment plan
Goal: Understand your diagnosis and treatment plan needs, including medications if applicable.
Instructions: Know your diagnosis, underlying causes and treatment plan options, including medications if applicable. Consult with your health care team to learn about your diagnosis and treatment plan, including medications if applicable.
Discharge Date and Time
Print Language: THAI
--- NOTE | 2024-08-25 13:15 | PTCARENOTE ---
Epicardial V wire cut by CT PA; court monitor removed; RIJ Cordis removed per CT PA order; pt showered self with CHG soap; at bedside for discharge instructions.
--- NOTE | 2024-08-25 14:23 | W.PN.UPDATE ---
Update Note
Progress Note Update
temporary pacing wires cut by me at bedside without incident.
--- NOTE | 2024-08-25 14:44 | PTCARENOTE ---
Pt did steps with RN without difficulties; discharge paperwork gone over with pt and ; all questions answered; pt discharged in wheelchair to home with .
== END 2024-08-25 14:47 | disposition home or self-care (01) | DRG 220 ==
LOC: CVICU 05:07
PROVIDERS: Anesthesiology; Nurse Practitioner; Thoracic Surgery (Cardiothoracic Vascular Surgery); ADMITTING PHYSICIAN Thoracic Surgery (Cardiothoracic Vascular Surgery); CONSULT PHYSICIAN Internal Medicine Cardiovascular Disease; FAMILY PHYSICIAN Internal Medicine; OTHER PHYSICIAN Internal Medicine Critical Care Medicine
PROC: B24BZZ4 Ultrasonography of Heart with Aorta, Transesophageal (ICD-10-PCS; 2024-08-22)
PROC: 021009W Bypass Coronary Artery, One Artery from Aorta with Autologous Venous Tissue, Open Approach (ICD-10-PCS; 2024-08-22)
PROC: 5A1221Z Performance of Cardiac Output, Continuous (ICD-10-PCS; 2024-08-22)
PROC: 06BP4ZZ Excision of Right Saphenous Vein, Percutaneous Endoscopic Approach (ICD-10-PCS; 2024-08-22)
PROC: 02RF08Z Replacement of Aortic Valve with Zooplastic Tissue, Open Approach (ICD-10-PCS; 2024-08-22)
PROC: 02UX08Z Supplement Thoracic Aorta, Ascending/Arch with Zooplastic Tissue, Open Approach (ICD-10-PCS; 2024-08-22)
PROC: 02L70CK Occlusion of Left Atrial Appendage with Extraluminal Device, Open Approach (ICD-10-PCS; 2024-08-22)
DX: I35.0 Nonrheumatic aortic (valve) stenosis (principal); D62 Acute posthemorrhagic anemia; I50.32 Chronic diastolic (congestive) heart failure; J98.11 Atelectasis; I25.10 Atherosclerotic heart disease of native coronary artery without angina pectoris; R00.0 Tachycardia, unspecified; E87.70 Fluid overload, unspecified; E86.1 Hypovolemia; I48.0 Paroxysmal atrial fibrillation; I11.0 Hypertensive heart disease with heart failure; E78.00 Pure hypercholesterolemia, unspecified; E11.9 Type 2 diabetes mellitus without complications; Z68.31 Body mass index [BMI] 31.0-31.9, adult; E66.811 Obesity, class 1; Z79.84 Long term (current) use of oral hypoglycemic drugs; Z87.442 Personal history of urinary calculi; Z82.49 Family history of ischemic heart disease and other diseases of the circulatory system
CPT/HCPCS: 88305; 88311; 71045; 71046; 80048; 81003; 81015; 82330; 82565; 82805; 82810; 82947; 82962; 83036; 83735; 84132; 84302; 84520; 85014; 85018; 85025; 85027; 85049; 85610; 85730; 86850; 86900; 86901; 86920; 87070; 93005; 93312; 93320; 93325; 93880; 94002; J2916; P9045

== ENCOUNTER → 2025-02-06 06:57 | Outpatient (REF) | payer OTHER, SELFPAY | LOC: PAVMRI 06:57 | PROVIDERS: ATTENDING PHYSICIAN Specialist; FAMILY PHYSICIAN Internal Medicine | DX: M25.561 Pain in right knee (principal) | CPT/HCPCS: 73721 ==

== ENCOUNTER → 2025-03-06 09:17 | Outpatient (REF) | payer OTHER, SELFPAY | LOC: RCS 09:17 | PROVIDERS: ATTENDING PHYSICIAN Internal Medicine Cardiovascular Disease; FAMILY PHYSICIAN Internal Medicine | DX: Z95.2 Presence of prosthetic heart valve (principal); I35.0 Nonrheumatic aortic (valve) stenosis | CPT/HCPCS: 93306 ==